=== PATIENT | female | born 1990 | race Caucasian/White ===

== ENCOUNTER 2021-06-04 17:52 | Emergency (ER) | payer BC, MEDICAID, SELFPAY ==
[2021-06-04 17:56] VITALS: BP 149/90; PULSE 104; RESP 24; TEMP 36.6; O2SAT 99; BMI 20.5
--- NOTE | 2021-06-04 18:02 | ECG_ITS ---
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 Measurements Intervals [place] Rate: 92 P: 75 MS: 154 QRS: 54 QRSD: 89 T: 60 QT: 367 QTc: 456 Interpretive Statements SINUS RHYTHM No previous ECG available for comparison Electronically Signed On 06-04-2021 23:58:20 CDT by Magdaleno Dickinson M.D. [id number]
--- NOTE | 2021-06-04 18:02 | XRR_ITS ---
PROCEDURE INFORMATION: Exam: XR Chest Exam date and time: 06/04/2021 6:02 PM Age: 31 years old Clinical indication: Other: PT on heroin/ AMS; Additional info: Eval aspiration TECHNIQUE: Imaging protocol: XR of the chest. Views: 1 view. Total images: 1 COMPARISON: No relevant prior studies available. FINDINGS: Lungs: No visible active interstitial or alveolar airspace disease. Pleural spaces: Unremarkable. No pleural effusion. No pneumothorax. Heart/Mediastinum: Unremarkable. No cardiomegaly. Bones/joints: Mild scoliotic curvature. XR/XR chest 1V portable [id number] IMPRESSION: Nonacute. Radiation Dose CTDIVOL = (mGy): DLP = (mGy-cm)
--- NOTE | 2021-06-04 18:02 | CTR_ITS ---
PROCEDURE INFORMATION: Exam: CT Head Without Contrast Exam date and time: 06/04/2021 6:02 PM Age: 31 years old Clinical indication: Altered mental status/memory loss; Patient HX: Possible fall. PT injected heroin 2 hrs prior; Additional info: Rule out brain bleed TECHNIQUE: Imaging protocol: Computed tomography of the head without contrast. Total images: 192 Radiation optimization: All CT scans at this facility use at least one of these dose optimization techniques: automated exposure control; mA and/or kV adjustment per patient size (includes targeted exams where dose is matched to clinical indication); or iterative reconstruction. COMPARISON: No relevant prior studies available. RADIATION DOSE METRICS: Total DLP (mGy-cm): 993.84 FINDINGS: Brain: No evidence of active or acute intracranial pathologic process, hemorrhage, or trauma. No visible evidence of diffuse cerebral edema or generalized demyelination. No mass effect. No midline shift. Cerebral ventricles: No ventriculomegaly. Paranasal sinuses: Visualized sinuses are unremarkable. No fluid levels. Mastoid air cells: Visualized mastoid air cells are well aerated. Bones/joints: Unremarkable. No acute fracture. Soft tissues: Unremarkable. CT/CT head wo con* [id number] IMPRESSION: No evidence of active or acute intracranial pathologic process, hemorrhage, or trauma. Radiation Dose CTDIVOL = (mGy): DLP = 993.84 (mGy-cm)
[2021-06-04] MEDS: diphenhydrAMINE 50 mg/mL SDV 1mL IVP (19:05)
[2021-06-04] MEDS: sodium chloride 0.9% 1,000 ML 999 ML IV (19:05)
[2021-06-04] MEDS: cloNIDine 0.1 mg Tablet PO (19:05)
[2021-06-04] MEDS: ondansetron 2 mg/ML SDV 2 mL 4 MG IVP (19:05)
[2021-06-04 19:06] LABS: Basophils % 0.4 %; Eosinophils # 0.2 10^3/uL (0.0-0.8); Eosinophils % 1.7 %; Hematocrit 38.9 % (37.0-47.0); Hemoglobin 12.7 g/dL (11.5-15.3); Lymphocytes # 1.3 10^3/uL (0.8-4.8); Lymphocytes % 13.3 %; Mean Corpuscular HGB Conc 32.6 g/dL (30.0-36.0); Mean Corpuscular Volume 79.6 fl (81-99); Mean Platelet Volume 10.7 fL (7.4-10.4); Monocytes # 0.4 10^3/uL (0.2-0.9); Monocytes % 4.3 %; Neutrophils # 7.74 10^3/uL (1.8-7.7); Neutrophils % 79.9 %; Nucleated Red Blood Cells % 0 %; Platelet Count 248 10^3/cmm (130-400); Red Blood Count 4.89 10^6/uL (4.1-5.3); Red Cell Distribution Width 14.5 % (12.1-15.1); White Blood Count 9.7 10^3/uL (4.0-10.0)
--- NOTE | 2021-06-04 19:29 | ED_ITS ---
HPI - General Adult General: Chief complaint: Overdose Stated complaint: SEIZURE LIKE ACTIVITY Time Seen by Provider: 06/04/21 17:55 History of Present Illness: HPI narrative: CC: AMS HPI: [31]yo patient w/ hx of drug use BIBA for altered mental status. He was found down outside by bystanders with upper extremity shaking movement in the LUE. On arrival, patient reports that she injected heroin about 3 hours ago. She does not member how and where she obtained the heroin from. Rest of history limited given altered mental status. Onset: Unknown Duration: ongoing, unclear duration Location: streets Severity: severe Review of Systems Narrative: REVIEW OF SYSTEMS unable to obtain due to current cognitive status Physical Exam Narrative: EXAM NARRATIVE: Head: Atraumatic Eyes: PERRL, conjunctiva without injection, pupil midsized ENT: Mucous membrane moist NECK: Supple without lymphadenopathy LUNGS: LCTAB CV: RRR ABDOMEN: Soft, nontender EXTREMITY: Normal ROM, no clonu or rigidity SKIN: No rash or erythema, no signs of track whelan, no visible patches, no noticeable cellulitis NEURO: Somnolent but intermittently agitated, moving all extremities, GCS of 13 PSYCH: agitated Course Vital Signs: Vital signs: Vital Signs Temperature 97.8 F 06/04/21 17:56 Pulse Rate 82 06/04/21 22:38 Respiratory Rate 15 06/04/21 22:38 Blood Pressure 132/82 06/04/21 22:38 Pulse Oximetry 100 06/04/21 22:38 MDM - General Adult MDM Narrative: Medical decision making narrative: [31]yo patient w/ hx of drug use BIBA for AMS, unclear last seen normal. Obtunded with +Slurred, sluggish behavior. Questionable EtOH intoxication. Airway maintained. No signs of trauma including bruises, hematoma, lacerations, or basilar skull fracture. NO increased work of breathing or tachypnea on presentation, no suspicion for toxic alcohol vs ASA overdose vs DKA. DDx broad including intracranial injuries, metabolic phenomenon, substance intoxication/withdrawal, and sepsis. Toxidrome Findings: Negative. No rigidity or clonus of LE ankle/knee reflexes, no diaphoresis, pupils mid-ranged equal and reactive to light, no signs of track whelan/body patches, normal bowel sounds, and bladder non-palpable/ non- distended. EKG: EKG: Normal Sinus Rhythm. No overt ischemic findings and no prolongation of QTc or QRS intervals. No signs of hyperkalemia (peaked T waves, QRS widening, and CO prolongation) Workup: CBC, CMP, acetaminophen level, salicylate level, CK, UA, ECG, UA/UDS, CT brain, XR Chest Intervention: IVF, PO challenge, observation Lab Findings: UA positive for trich, urine/hcg preg positive Imaging studies: negative for any acute findings. [7:39] On reassessment, patient is now hemodynamically stable, AOx3 GCS 15. Urine drug screen only showed opiates and amphetamine. Patient does not remember using phentermine earlier today. Work-up today including CT brain x- ray chest and lab work-up were negative at this time. Patient denies using any drugs earlier today. Patient tolerated p.o. and is able to ambulate without any difficulty. Neuro intact at this time. Beta hCG of 07/11/2028, urine positive. Patient is noted to have Trichomonas on urine study. I have discussed these findings with patient and instructed close follow-up with a primary care provider for further evaluation of her . Patient is given strict return precaution for any signs of seizure, vaginal discharge, vaginal bleeding, abdominal pain, or any other focal complaints. Patient is given seizure precautions today and discharge instructions. Rx metronidazole 500mg BID for treatment trichmonias Disposition: Discharge. Patient counseled regarding diagnostic impression, treatment plan. Patient given ED strict return precautions to return for continuation, worsening, or development of new symptoms. Instructed to f/u w/ PCP regarding symptoms today. Patient verbalized understanding. Lab Data: Labs: Lab Results 06/04/21 06/04/21 06/04/21 18:57 18:57 18:57 WBC 9.7 10^3/uL 10^3/ uL (4.0-10.0) RBC 4.89 10^6/uL 10^6 /uL (4.1-5.3) Hgb 12.7 g/dL g/dL (11.5-15.3) Hct 38.9 % % (37.0-47.0) MCV 79.6 fl L fl (81-99) MCH 26.0 pg L pg (28.0-34.0) MCHC 32.6 g/dL g/dL (30.0-36.0) RDW 14.5 % % (12.1-15.1) Plt Count 248 10^3/cmm 10^3 /cmm (130-400) MPV 10.7 fL H fL (7.4-10.4) Neut % (Auto) 79.9 % % Lymph % (Auto) 13.3 % % Brooks % (Auto) 4.3 % % Eos % (Auto) 1.7 % % Baso % (Auto) 0.4 % % Neut # (Auto) 7.74 10^3/uL H 10 ^3/uL (1.8-7.7) Lymph # (Auto) 1.3 10^3/uL 10^3/ uL (0.8-4.8) Brooks # (Auto) 0.4 10^3/uL 10^3/ uL (0.2-0.9) Eos # (Auto) 0.2 10^3/uL 10^3/ uL (0.0-0.8) Baso # (Auto) 0.0 10^3/uL 10^3/ uL (0.0-0.1) Nucleated RBC % (a uto) 0 % % Nucleated RBCs # 0.0 /100WBC /100W BC Sodium 139 mmol/L mmol/L (136-145) Potassium 3.4 mmol/L L mmol /L (3.5-5.1) Chloride 102 mmol/L mmol/L (98-107) Carbon Dioxide 21 mmol/L L mmol/ L (22-29) Anion Gap 19.4 H (5-19) BUN 13 mg/dL mg/dL (6-20) Creatinine 0.7 mg/dL mg/dL (0.5-0.9) GFR Calculation 98.3 mL/min mL/mi n (90-130) Glucose 93 mg/dL mg/dL (65-115) Calculated Osmolal ity 288 mOsm/kg mOsm/ kg (285-295) Calcium 9.0 mg/dL mg/dL (8.5-10.5) Total Bilirubin 0.3 mg/dL mg/dL (0.15-1.2) AST 96 U/L H U/L (0-32) ALT 200 U/L H U/L (0-33) Alkaline Phosphata se 65 IU/L IU/L (35-105) Creatine Kinase 180 U/L U/L (26-192) Troponin T Gen 5 n g/L 6 ng/L ng/L (0-10) Total Protein 7.7 g/dL g/dL (6.6-8.7) Albumin 4.6 g/dL g/dL (3.5-5.2) Globulin 3.1 g/dL g/dL (1.3-4.6) Lipase 26 U/L U/L (13-60) Ser , Juanita i-Qnt 128.00 mIU/mL mIU /mL Urine Color Urine Appearance Urine pH Ur Specific Gravit y Urine Protein Urine Glucose (UA) Urine Ketones Urine Blood Urine Nitrate Urine Bilirubin Urine Urobilinogen Ur Leukocyte Sandee ase Urine RBC Urine WBC Ur Squamous Epith Cells Amorphous Sediment Urine Bacteria Urine Trichomonas Urine HCG, Qual Salicylates < 0.3 mg/dL L mg/ dL (3-10) Urine Opiates Scre en Acetaminophen < 5.0 ug/mL L ug/ mL (10-30) Ur Barbiturates Sc reen Ur Phencyclidine S crn Ur Amphetamines Sc reen U Benzodiazepines Scrn Urine Cocaine Scre en U Marijuana (THC) Screen Ethyl Alcohol < 10 mg/dL mg/dL (0-10) 06/04/21 06/04/21 06/04/21 20:10 20:10 20:10 WBC RBC Hgb Hct MCV MCH MCHC RDW Plt Count MPV Neut % (Auto) Lymph % (Auto) Brooks % (Auto) Eos % (Auto) Baso % (Auto) Neut # (Auto) Lymph # (Auto) Brooks # (Auto) Eos # (Auto) Baso # (Auto) Nucleated RBC % (a uto) Nucleated RBCs # Sodium Potassium Chloride Carbon Dioxide Anion Gap BUN Creatinine GFR Calculation Glucose Calculated Osmolal ity Calcium Total Bilirubin AST ALT Alkaline Phosphata se Creatine Kinase Troponin T Gen 5 n g/L Total Protein Albumin Globulin Lipase Ser , Juanita i-Qnt Urine Color Yellow (Yellow) Urine Appearance Clear (CLEAR) Urine pH 5 (5-7) Ur Specific Gravit y 1.020 (1.005-1.030) Urine Protein 1+ H (Negative) Urine Glucose (UA) Norm (Normal) Urine Ketones Negative (Negative) Urine Blood Neg (Negative) Urine Nitrate Negative (Negative) Urine Bilirubin Neg (Negative) Urine Urobilinogen Norm mg/dL mg/dL (Negative) Ur Leukocyte Sandee ase Negative (Negative) Urine RBC None /hpf /hpf (0-2) Urine WBC 0-4 /hpf H /hpf (0-5) Ur Squamous Epith Cells 0-4 /hpf H /hpf (0-5) Amorphous Sediment Not Reportable Urine Bacteria 1+ /hpf H /hpf (NONE) Urine Trichomonas 1+ /hpf H /hpf Urine HCG, Qual Positive H (Negative) Salicylates Urine Opiates Scre en Negative ng/mL ng /mL (Negative) Acetaminophen Ur Barbiturates Sc reen Negative ng/mL ng /mL (Negative) Ur Phencyclidine S crn Negative ng/mL ng /mL (Negative) Ur Amphetamines Sc reen Positive ng/mL H ng/mL (Negative) U Benzodiazepines Scrn Negative ng/mL ng /mL (Negative) Urine Cocaine Scre en Negative ng/mL ng /mL (Negative) U Marijuana (THC) Screen Positive ng/mL H ng/mL (Negative) Ethyl Alcohol Imaging Data^: Other Imaging: Radiologist's impression: [employer] [id number] Scan ReportSigned Patient: Kathy Retana #: [id number]: 1990Acct#:[id number]/Sex: 31 / FADM Date: 06/04/21Loc: ERRoom/Bed:Attending Dr: Ordering Provider/Ordering MD: Lucas Spaulding MD Date of Service: 06/04/21 Procedure(s): CT head wo con* [id number] Accession Number(s): [id number] Report Number: [id number] PROCEDURE INFORMATION: Exam: CT Head Without Contrast Exam date and time: 06/04/2021 6:02 PM Age: 31 years old Clinical indication: Altered mental status/memory loss; Patient HX: Possible fall. PT injected heroin 2 hrs prior; Additional info: Rule out brain bleed TECHNIQUE: Imaging protocol: Computed tomography of the head without contrast. Total images: 192 Radiation optimization: All CT scans at this facility use at least one of these dose optimization techniques: automated exposure control; mA and/or kV adjustment per patient size (includes targeted exams where dose is matched to clinical indication); or iterative reconstruction. COMPARISON: No relevant prior studies available. RADIATION DOSE METRICS: Total DLP (mGy-cm): 993.84 FINDINGS: Brain: No evidence of active or acute intracranial pathologic process, hemorrhage, or trauma. No visible evidence of diffuse cerebral edema or generalized demyelination. No mass effect. No midline shift. Cerebral ventricles: No ventriculomegaly. Paranasal sinuses: Visualized sinuses are unremarkable. No fluid levels. Mastoid air cells: Visualized mastoid air cells are well aerated. Bones/joints: Unremarkable. No acute fracture. Soft tissues: Unremarkable. CT/CT head wo con* [id number] IMPRESSION: No evidence of active or acute intracranial pathologic process, hemorrhage, or trauma. Radiation Dose CTDIVOL = (mGy): DLP = 993.84 (mGy-cm) Dictated By:Eyal Collins By:Eyal Collins Date/Time:06/04/21 1914DD/ [address] [id number] ReportSigned Patient: Kathy Schilling #: [id number]: 1990Acct#:[id number]/Sex: 31 / FADM Date: 06/04/21Loc: ERRoom/Bed:Attending Dr: Ordering Provider/Ordering MD: Lucas Spaulding MD Date of Service: 06/04/21 Procedure(s): XR chest 1V portable [id number] Accession Number(s): [id number] Report Number: [id number] PROCEDURE INFORMATION: Exam: XR Chest Exam date and time: 06/04/2021 6:02 PM Age: 31 years old Clinical indication: Other: PT on heroin/ AMS; Additional info: Eval aspiration TECHNIQUE: Imaging protocol: XR of the chest. Views: 1 view. Total images: 1 COMPARISON: No relevant prior studies available. FINDINGS: Lungs: No visible active interstitial or alveolar airspace disease. Pleural spaces: Unremarkable. No pleural effusion. No pneumothorax. Heart/Mediastinum: Unremarkable. No cardiomegaly. Bones/joints: Mild scoliotic curvature. XR/XR chest 1V portable [id number] IMPRESSION: Nonacute. Radiation Dose CTDIVOL = (mGy): DLP = (mGy-cm) Dictated By:Eyal Collins By:Eyal Collins Date/Time:06/04/211857DD/ 01 Discharge Plan Discharge Patient Disposition: Home Clinical Impression: Overdose, , Seizure, Trichomoniasis Condition: Stable Prescriptions: New metronidazole 500 mg tablet 500 mg PO BID 14 Days Qty: 28 RF: 0 Discharge Orders: Discharge ED (Routine); Ordered 06/04/21 Ordered By: Lucas Spaulding Discharge Diet: Advance as tolerated Discharge Activity: Resume usual activity Patient Instructions: Metronidazole (By mouth), (ED), Seizures Activity Restrictions/Additional Instructions: Please follow-up with your primary care provider for further evaluation of your symptoms. Please do not take shower, swim, bathe, or drive under the influence of drugs and given concerns of your seizure risk. Please follow-up with your primary care provider for evaluation of . Because you have trichmonias infection, please take the antibiotics as instructed. Please do not drink alcohol when you are taking this antibiotics as you can get violently sick. Come back to the emergency room you have any new or concerning complaints. Coding Level of Care Code ED Religion Department Chair for Weston Sevilla
[2021-06-04 19:30] LABS: Troponin T (5th) Once 6 ng/L (0-10)
[2021-06-04 19:42] LABS: Alanine Aminotransferase 200 U/L (0-33); Albumin Level 4.6 g/dL (3.5-5.2); Alkaline Phosphatase 65 IU/L (35-105); Anion Gap 19.4 (5-19); Aspartate Amino Transferase 96 U/L (0-32); Blood Urea Nitrogen 13 mg/dL (6-20); Carbon Dioxide 21 mmol/L (22-29); Chloride 102 mmol/L (98-107); Creatine Phosphokinase 180 U/L (26-192); Globulin 3.1 g/dL (1.3-4.6); Glomerular Filtration Rate 98.3 mL/min (90-130); Glucose 93 mg/dL (65-115); Lipase 26 U/L (13-60); Osmolality Calculated 288 mOsm/kg (285-295); Potassium 3.4 mmol/L (3.5-5.1); Sodium 139 mmol/L (136-145); Total Bilirubin 0.3 mg/dL (0.15-1.2); Total Protein 7.7 g/dL (6.6-8.7)
[2021-06-04 19:46] LABS: Salicylate < 0.3 mg/dL (3-10)
[2021-06-04 19:47] VITALS: BP 131/73; PULSE 81; RESP 15; O2SAT 100
[2021-06-04 19:47] LABS: Acetaminophen < 5.0 ug/mL (10-30); Alcohol Level < 10 mg/dL (0-10)
[2021-06-04 20:16] VITALS: BP 129/80; PULSE 81; RESP 16; O2SAT 99
[2021-06-04 20:39] LABS: Protein Urine 1+ (Negative); Urine Appearance Clear (CLEAR); Urine Color Yellow (Yellow); pH Urine 5 (5-7)
[2021-06-04 20:40] LABS: Add Urine Microscopic? YES; Bilirubin Urine Neg (Negative); Blood Urine Neg (Negative); Glucose Urine UA Norm (Normal); Ketones Urine Negative (Negative); Leukocyte Esterase Urine Negative (Negative); Nitrate Urine Negative (Negative); Urobilinogen Urine Norm (Negative)
[2021-06-04 20:42] LABS: Amphetamines Screen Urine Positive (Negative); Bacteria Urine 1+ /hpf; Barbiturates Screen Urine Negative (Negative); Benzodiazepines Screen Urine Negative (Negative); Cocaine Screen Urine Negative (Negative); Opiate Screen Urine Negative (Negative); PCP Screen Urine Negative (Negative); Squamous Epithelial Cell Urine 0-4 /hpf (0-5); THC Screen Urine Positive (Negative); Trichomonas Urine 1+ /hpf; WBC Urine 0-4 /hpf (0-5)
[2021-06-04 20:43] LABS: Add Urine Culture? No
[2021-06-04 20:58] VITALS: BP 148/87; PULSE 74; RESP 16; O2SAT 100
[2021-06-04 22:38] VITALS: BP 132/82; PULSE 82; RESP 15; O2SAT 100
--- NOTE | 2021-06-06 14:56 | DCPLANNER ---
donor services manager had message to speak with patient about getting established with a primary care physician. A message was left for patient to return trimming caser phone call.
== END 2021-06-04 22:31 | disposition home or self-care (01) ==
PROVIDERS: Emergency Provider Emergency Medicine
DX: O9A.219 Injury, poisoning and certain other consequences of external causes complicating pregnancy, unspecified trimester (principal); T43.621A Poisoning by amphetamines, accidental (unintentional), initial encounter; Z3A.00 Weeks of gestation of pregnancy not specified; O98.919 Unspecified maternal infectious and parasitic disease complicating pregnancy, unspecified trimester; A59.9 Trichomoniasis, unspecified
CPT/HCPCS: 51701; 70450; 71045; 80053; 80306; 80307; 81001; 81025; 82550; 83690; 84484; 84702; 85025; 93005; 96361; 96374; 96375; 99284; J1200; J2405; J7030

== ENCOUNTER 2022-01-29 01:22 | Inpatient (IN) | payer BC, MEDICAID, SELFPAY ==
[2022-01-29] VITALS (62 sets, daily range): BP systolic 107–187; BP diastolic 56–95; PULSE 51–114; RESP 18; TEMP 36.9; O2SAT 90–100; BMI 30.7
[2022-01-29] MEDS: lactated ringers 1,000 ML 999 ML IV (01:35)
[2022-01-29 02:03] LABS: Basophils % 0.3 %; Eosinophils # 0.1 10^3/uL (0.0-0.8); Eosinophils % 1.4 %; Hemoglobin 10.2 g/dL (11.5-15.3); Lymphocytes # 1.6 10^3/uL (0.8-4.8); Lymphocytes % 21.5 %; Mean Corpuscular Hemoglobin 25.8 pg (28.0-34.0); Mean Corpuscular Volume 75.9 fl (81-99); Mean Platelet Volume 11.5 fL (7.4-10.4); Monocytes # 0.4 10^3/uL (0.2-0.9); Monocytes % 4.9 %; Neutrophils # 5.23 10^3/uL (1.8-7.7); Neutrophils % 71.2 %; Nucleated Red Blood Cells % 0 %; Platelet Count 161 10^3/cmm (130-400); Red Blood Count 3.95 10^6/uL (4.1-5.3); Red Cell Distribution Width 13.7 % (12.1-15.1); White Blood Count 7.3 10^3/uL (4.0-10.0)
--- NOTE | 2022-01-29 02:30 | ANES.PREANE2 ---
Documented by User: Pascale RadfordBRIDGETTE 01/29/22 02:51 Pre-Anesthetic Assessment Height/Weight: Height 1.63 m Pulse BP Pulse Ox 75 142/84 100 01/29/22 02:46 01/29/22 02:46 01/29/22 02:42 Preop Diagnosis: IUP epidural Familial anesthetic complications: none Was Beta Jesu taken within 24 hours: N/A Was Clonidine taken within 24 hours: N/A Last Intake: 22:00 Social No alcohol vapes pack(s) per day previous heroin abuse- currently on methadone Exam alert and oriented x 3 Airway Submandibular: within normal limits Cervical ROM: within normal limits Mallampati: Class II Dentition: full History/ROS No significant history except as noted Anesthetic Plan ASA status: 3 Anesthesia: Anesthesia Evaluation and Regional (specify below) (epidural) Medications/Allergies Home Medications Medication Instructions Recorded Confirmed Last Taken Type methadone 10 mg tablet 90 mg PO DAILY 01/29/22 01/29/22 01/28/22 05:00 History Allergies Allergy/AdvReac Type Severity Reaction Status Date / Time cefaclor [From Ceclor] Allergy Unknown Verified 01/29/22 05:49 erythromycin base Allergy Unknown Verified 01/29/22 01:28 Penicillins Allergy Unknown Verified 01/29/22 01:28 Data Anesthesia : 01/29/22 01:49 Short CBC 01/29/22 Range/Units 01:49 WBC 7.3 (4.0-10.0) 10^3/uL Hgb 10.2 L (11.5-15.3) g/dL Hct 30.0 L (37.0-47.0) % MCV 75.9 L (81-99) fl Plt Count 161 (130-400) 10^3/cmm Neut % (Auto) 71.2 % Neut # (Auto) 5.23 (1.8-7.7) 10^3/uL Cardiac Studies: No Data to Display
[2022-01-29] MEDS: dextrose 5%-lactated ringers 1,000 ML 125 ML IV (02:35)
--- NOTE | 2022-01-29 02:51 | ANES.PROC ---
Documented by User: Pascale Radford CRNA 01/30/22 08:01 Anesthesia Procedures Procedure/Date: 01/30/22 Epidural: Time Out Performed: Yes Consents Signed: Procedure Consent Consent: from patient, risks and benefits reviewed and patient agrees to proceed Lumbar Level: L3-L4 Epidural position: sitting Epidural procedure: sterile prep of area, 1% lidocaine to numb the area, 18 g needle, negative for paresthesia passed, test dose given, 1.5% xylocaine 1:200k epi, 0.2% Ropivacaine bolus ml, placed PCEA, no systemic response, sterile dressing applied, L.U.D. no apparent complications and 0.2% Ropiavacaine @ mls/hr (13) Additional Comments: SELENE at 5, taped at 12 at skin. neg CSF return, neg blood return Documented by User: Kaylie Figueredo DO 01/30/22 08:46 Anesthesia Procedures Procedure/Date: 01/30/22
[2022-01-29] MEDS: oxytocin 30 UNIT/500 ML BAG 600 UNIT IV (03:52)
--- NOTE | 2022-01-29 04:20 | P.HPUD_ITS ---
Labor & Delivery H&P Update Date of Procedure: January 29, 2022 Date H&P Performed: 01/28/22 Changes to previous documentation: Spontaneous rupture of membranes Admission Diagnosis: 31-year-old 5 para 4-0-0-4 at 37 weeks estimated gestational age presenting with spontaneous rupture membranes Preop diagnosis: IUP Planned procedure: Spontaneous vaginal delivery Other information: The patient is a 37-week female who presented to the hospital after having leakage of fluid shortly before coming to the hospital. She did not have easy access to a ride, and took an ambulance to the hospital. Upon arrival at the hospital she was found to be nitrazine positive with a moist vaginal vault. Her was remarkable for being hep C positive. She is also noted to have trichomonas which was treated. Her drug screen was notable for opiates and marijuana. She is currently on methadone 90 mg daily and has a marijuana card currently. Her blood type is B-. She is antibody negative. She was GBS negative. Her glucose screen was negative. She is rubella immune. She was negative for HIV, syphilis, and hepatitis B. Related Problem List Diagnoses (1) 37 weeks gestation of : (2) Spontaneous rupture of membranes: (3) Hepatitis C: (4) History of trichomonal vaginitis: (5) Methadone use: (6) Marijuana use: A&P Assessment & Plan (1) 37 weeks gestation of : Assessment & Plan: The patient is an active labor and making cervical change. She can have an epidural if desired. Status: Acute Code(s): Z3A.37 - 37 weeks gestation of (2) Spontaneous rupture of membranes: Status: Acute (3) Hepatitis C: Status: Acute Code(s): B19.20 - Unspecified viral hepatitis C without hepatic coma (4) History of trichomonal vaginitis: Assessment & Plan: Partner and patient adequately treated. No further symptoms. Status: Acute Code(s): Z86.19 - Personal history of other infectious and parasitic diseases (5) Methadone use: Assessment & Plan: Currently receiving to methadone clinic. Status: Acute Code(s): F11.90 - Opioid use, unspecified, uncomplicated (6) Marijuana use: Status: Acute Code(s): F12.90 - Cannabis use, unspecified, uncomplicated Assessment & Plan: * All medications have been reviewed for disease state management, side effects, interactions, or complications. * Patient medication history and treatment plan has been reviewed. Based on recommendation from [] and my own review, I am prescribing [] for patient. * Prescription e-prescribed to []
--- NOTE | 2022-01-29 04:30 | P.PCNOB_ITS ---
Delivery Note: Date of delivery: January 29, 2022 Pre-delivery diagnoses: 31-year-old 5 para 4 at 37 weeks estimated gestational age presenting with spontaneous rupture of membranes and active labor. Post-delivery diagnoses: Same Procedure: Spontaneous vaginal delivery Delivering Physician: Johnson Gusman Estimated blood loss (mL): 200 Pre-Delivery Course: The patient presented to the hospital with spontaneous rupture membranes and active labor. An epidural was placed. She progressed to complete without difficulty. Delivery: DELIVERY: The patient progressed to complete without difficulty. She delivered a female with a weight of 6 pounds 6 ounces with Apgars of 9, 9. The baby was delivered from the MARYANN position and placed on the mother's abdomen. The cord was then clamped and cut. There was no nuchal cord. There was no meconium. The placenta and 3 vessel cord were delivered intact shortly thereafter. The perineum and vaginal vault were carefully examined. No lacerations were noted. Both the mother and the baby were in stable condition. Post-Delivery Status: Good A&P Assessment and plan (1) Spontaneous vaginal delivery: I anticipate routine care. She has been prescribed methadone. Status: Acute Coding Level of Care Code Acute Professional Soccer Player for Chg Fwd Diagnoses Spontaneous vaginal delivery O80
[2022-01-29 05:06] LABS: Amphetamines Screen Urine Negative (Negative); Barbiturates Screen Urine Negative (Negative); Benzodiazepines Screen Urine Negative (Negative); Cocaine Screen Urine Negative (Negative); Opiate Screen Urine Negative (Negative); PCP Screen Urine Negative (Negative); THC Screen Urine Positive (Negative)
--- NOTE | 2022-01-29 06:00 | PC.NURSE ---
Patient asleep in bed with baby. Moved baby to open crib, woke patient and reeducated on safe sleep practices.
[2022-01-29] MEDS: docusate sodium 100 mg Capsule PO ×2 (08:19→18:09)
[2022-01-29] MEDS: prenatal vitamin Capsule 1 CAP PO (08:19)
[2022-01-29] MEDS: methadone 10 mg Tablet 90 MG PO (08:20)
[2022-01-29] MEDS: ibuprofen 800 mg tablet PO ×2 (08:20→21:08)
--- NOTE | 2022-01-29 08:33 | ANE.PACU2 ---
Inpatient post-anesthesia follow up: Airway intact: Yes Vital signs: Temperature Pulse Rate 53 Respiratory Rate Blood Pressure 131/72 Pulse Oximetry 100 Oxygen Delivery Me thod Room Air Oxygen Flow Rate Fraction of Inspir ed Oxygen Hydration adequate: Yes Nausea and vomiting: No Pain level: 2 Mental status: Baseline
[2022-01-29 17:05] LABS: Hemoglobin 9.9 g/dL (11.5-15.3); Mean Corpuscular Hemoglobin 25.7 pg (28.0-34.0); Mean Corpuscular Volume 77.9 fl (81-99); Mean Platelet Volume 11.4 fL (7.4-10.4); Platelet Count 163 10^3/cmm (130-400); Red Blood Count 3.85 10^6/uL (4.1-5.3); White Blood Count 8.3 10^3/uL (4.0-10.0)
--- NOTE | 2022-01-30 02:11 | PC.NURSE ---
This nurse went to obtain vitals on the pt and perform CINDY scoring on the and the pt was agitated at this time. She expressed concern that baby was withdrawing and would only get worse. Pt was concerned about not expressing enough breastmilk and this nurse educated about pumping at this time. pt was visibly upsetting and stating i'm getting really pissed off. Stated this RN could not perform CINDY scoring at this time and could come back later. Security was contacted as well as packing house laborer.
[2022-01-30 04:28] VITALS: BP 157/73; PULSE 65
[2022-01-30] MEDS: methadone 10 mg Tablet 90 MG PO (06:50)
--- NOTE | 2022-01-30 06:56 | P.DS_ITS ---
Discharge Providers SENIOR ENVIRONMENTAL CONSULTANT Date of Admission: 01/29/22 01:22 Date of Discharge: 01/30/22 Attending Provider at Admission: Johnson Gusman MD Attending Provider at Discharge: Johnson Gusman MD Diagnoses at Discharge Discharge Diagnosis (1) Spontaneous vaginal delivery: Status: Acute Reason for Visit Reason for Visit: Possible ROM, here by EMS Hospital Course Hospital Course The patient presented to the hospital with spontaneous rupture of membranes. An epidural was placed. She then progressed to complete and had an unremarkable delivery of a healthy-appearing female . Her bleeding was within normal limits. Her course was also unremarkable. There were no complications. Information Peripartum Data: Delivery Method: Vaginal Physical Exam Narrative: The patient is alert. She appears comfortable. Her heart has a regular rate and rhythm with no murmurs appreciated. Lungs are clear to auscultation bilaterally. Her fundus is firm and below the umbilicus. Urinary Catheter Management: Carcamo Latex: Cath Placed During This Visit: yes Urinary Catheter Date of Insertion: 01/29/22 Urinary Catheter Time of Insertion: 02:50 Discharge Data Studies Completed and Pending Laboratory Results WBC 8.3 10^3/uL (4.0-10.0) 01/29/22 16:25 RBC 3.85 10^6/uL (4.1-5.3) L 01/29/22 16:25 Hgb 9.9 g/dL (11.5-15.3) L 01/29/22 16:25 Hct 30.0 % (37.0-47.0) L 01/29/22 16:25 MCV 77.9 fl (81-99) L 01/29/22 16:25 MCH 25.7 pg (28.0-34.0) L 01/29/22 16:25 MCHC 33.0 g/dL (30.0-36.0) 01/29/22 16:25 RDW 14.0 % (12.1-15.1) 01/29/22 16:25 Plt Count 163 10^3/cmm (130-400) 01/29/22 16:25 MPV 11.4 fL (7.4-10.4) H 01/29/22 16:25 Neut % (Auto) 71.2 % 01/29/22 01:49 Lymph % (Auto) 21.5 % 01/29/22 01:49 [place] % (Auto) 4.9 % 01/29/22 01:49 Eos % (Auto) 1.4 % 01/29/22 01:49 Baso % (Auto) 0.3 % 01/29/22 01:49 Neut # (Auto) 5.23 10^3/uL (1.8-7.7) 01/29/22 01:49 Lymph # (Auto) 1.6 10^3/uL (0.8-4.8) 01/29/22 01:49 [place] # (Auto) 0.4 10^3/uL (0.2-0.9) 01/29/22 01:49 Eos # (Auto) 0.1 10^3/uL (0.0-0.8) 01/29/22 01:49 Baso # (Auto) 0.0 10^3/uL (0.0-0.1) 01/29/22 01:49 Nucleated RBC % (auto) 0 % 01/29/22 01:49 Nucleated RBCs # 0.0 /100WBC 01/29/22 01:49 Urine Opiates Screen Negative ng/mL (Negative) 01/29/22 02:00 Ur Barbiturates Screen Negative ng/mL (Negative) 01/29/22 02:00 Ur Phencyclidine Scrn Negative ng/mL (Negative) 01/29/22 02:00 Ur Amphetamines Screen Negative ng/mL (Negative) 01/29/22 02:00 U Benzodiazepines Scrn Negative ng/mL (Negative) 01/29/22 02:00 Urine Cocaine Screen Negative ng/mL (Negative) 01/29/22 02:00 U Marijuana (THC) Screen Positive ng/mL (Negative) H 01/29/22 02:00 Vitals Last Vital Signs Temp 98.4 F 01/29/22 21:13 Pulse 65 01/30/22 04:28 Resp 18 01/29/22 09:57 BP 157/73 01/30/22 04:28 Pulse Ox 100 01/29/22 02:42 Discharge Plan Discharge Patient Disposition: Home Condition: Stable Prescriptions: New ibuprofen 800 mg Tablet 800 mg PO TID Qty: 45 0RF -U 106.5-1 mg Capsule 1 cap PO DAILY Qty: 100 0RF Continued methadone 10 mg Tablet 90 mg PO DAILY 0RF Discharge Orders: Discharge Order (Routine); Ordered 01/30/22 Ordered By: Johnson Gusman Referrals: Johnson Gusman MD [Physician] - 6 Weeks Discharge Diet: Usual diet Discharge Activity: Limit activity as instructed Patient Instructions: Opioid Safety Discharge Attestations SENIOR ENVIRONMENTAL CONSULTANT Time Spent in Discharge Care*: less than 30 min Coding Level of Care Code Acute Supervisor Graphite for Chg Fwd Diagnoses Spontaneous vaginal delivery O80
[2022-01-30] MEDS: prenatal vitamin Capsule 1 CAP PO (08:42)
[2022-01-30] MEDS: ibuprofen 800 mg tablet PO (08:42)
[2022-01-30] MEDS: docusate sodium 100 mg Capsule PO (08:42)
[2022-01-30 08:44] VITALS: BP 165/86; PULSE 60
[2022-01-30 08:46] VITALS: BP 158/85; PULSE 53
[2022-01-30 11:00] VITALS: BP 158/85; PULSE 53; RESP 16; TEMP 36.9
--- NOTE | 2022-01-30 11:10 | PC.NURSE ---
Mother rooming with
== END 2022-01-30 11:10 | disposition home or self-care (01) | DRG 806 ==
LOC: OPOB 04:09 → OBGYN 04:09
PROVIDERS: Admitting Provider Family Medicine; Visit Provider Family Medicine
DX: O98.42 Viral hepatitis complicating childbirth (principal); O99.324 Drug use complicating childbirth; Z37.0 Single live birth; B19.20 Unspecified viral hepatitis C without hepatic coma; F12.90 Cannabis use, unspecified, uncomplicated; Z3A.37 37 weeks gestation of pregnancy
CPT/HCPCS: 12345; 36415; 51702; 59025; 59409; 80306; 83986; 85025; 85027; 99211; J2795

== ENCOUNTER 2022-11-14 11:40 | Inpatient (IN) | payer BC, SELFPAY ==
[2022-11-14] VITALS (45 sets, daily range): BP systolic 115–131; BP diastolic 69–91; PULSE 62–104; RESP 14–28; TEMP 36.1–36.3; O2SAT 99–100
[2022-11-14] MEDS: vecuronium 10 mg SDV IVP (11:45)
[2022-11-14] MEDS: etomidate 2 mg/mL INJ SDV 10 mL 20 MG IVP (11:45)
--- NOTE | 2022-11-14 11:45 | XR_ITS ---
WS: [id number] XR chest 1V portable [id number] REASON FOR EXAM: dyspnea/cough FINDINGS: Patient intubated with the endotracheal tube tip just above the oumar. The heart and mediastinum are within normal limits. No pneumothorax or pneumomediastinum. Equivocal interstitial reticular lung opacities in the left lower/mid lung field. No other findings i ndicative of acute pulmonary parenchymal or pleural disease. XR/XR chest 1V portable [id number] IMPRESSION: Intubation as above. Equivocal lung opacities on the right which could represent acute or subacute p neumonitis, less likely aspiration.
--- NOTE | 2022-11-14 11:45 | ECG_ITS ---
[facility] Test Date: 2022-11-14 Pat Name: Kathy Retana Department: Room: Gender: Female Fulfillment Specialist: : 1990 Requested By: Saturnino Wilburn Order Number: [id number] Eleonora MD: Fernando Hudson M.D. Measurements Intervals [place] Rate: 120 P: 147 NV: 144 QRS: 111 QRSD: 94 T: 138 QT: 340 QTc: 482 Interpretive Statements SINUS TACHYCARDIA ARM LEADS REVERSED [INVERTED P AND QRS IN I] Compared to ECG 06/04/2021 19:42:05 Sinus rhythm no longer present Electronically Signed On 11-14-2022 16:31:45 CDT by Fernando Hudson M.D. [email or web address]
--- NOTE | 2022-11-14 11:45 | CT_ITS ---
WS: [id number] CT HEAD NONCONTRAST HISTORY: closed head injury TECHNIQUE: Contiguous axial imaging performed through the brain in 2.5 mm imaging. Bone and soft tiss ue windows. Sagittal and coronal reformats reviewed. All CT scans at [facility] use at least one of these dose optimization techniques: automated exposure control; mA and/or kV adjustment per pa tient size (includes targeted exams where dose is matched to clinical indication); or iterative recon struction. DLP: 1387.12 mGy.cm COMPARISON: 06/04/2021 No acute intracranial hemorrhage, midline shift or mass effect. No atrophy or prior infarcts or herniation. Ventricles: Normal size with no hydrocephalus. Paranasal sinuses: As visualized are clear. Mastoid air cells: Well pneumatized. Calvarium and scalp: Skull is intact with no soft tissue edema or swelling. Patient is intubated. CT/CT head wo con* [id number] IMPRESSION: Negative head CT.
--- NOTE | 2022-11-14 11:46 | CT_ITS ---
WS: [id number] CT FACIAL BONES HISTORY: trauma TECHNIQUE: Images obtained from the supraorbital location through the mandible. Soft tissue and bone windows are reviewed. Coronal and sagittal reformats have also been submitted. DLP: 1387.[address] scans at [facility] use at least one of these dose optimization techniques: automated e xposure control; mA and/or kV adjustment per patient size (includes targeted exams where dose is matc hed to clinical indication); or iterative reconstruction. COMPARISON: None available. Intubated and nasogastric tube noted. Nasal bones and zygomatic arches are intact. No air-fluid level s in the maxillary sinuses. No maxillary sinus fracture is identified. Visualized upper cervical spin e is negative. No maxillary fracture. Orbits and globes are normal. CT/CT facial bones wo con* [id number] IMPRESSION: Negative facial bone CT. No fractures.
[2022-11-14] MEDS: propofol 1,000 MG/100 ML INJ 5 MG (11:52)
--- NOTE | 2022-11-14 11:54 | W.ED.SEIZURE ---
HPI - Seizure General: Chief Complaint: Seizure Stated Complaint: unresponsive/seizures Time Seen by Provider: 11/14/22 11:44 Source: EMS Mode of arrival: EMS History of Present Illness: HPI Narrative: 32-year-old female brought in by EMS she is obtunded on arrival and EMS reports having given her 10 mg of IV Versed for a witnessed seizure. She had been walking around in the store and [place] began convulsing after she fell to the ground she did have blood in the naris when she arrived. She is unresponsive with sonorous respirations and nasopharyngeal airway in place she was emergently intubated on arrival. We later found that she is prescribed methadone by a local clinic and was given 1 week supply today. It is uncertain whether or not she overdosed on this she has a boyfriend who is at the hospital but is not inside the emergency room he is waiting in a car outside with the patient's children. complaint: seizure Onset (ago): minute(s) Description of Episode: tonic-clonic movement Witnessed: Yes - by Bystander Trauma: Yes (Hit her face when she fell) Place: Local convenience store Possible Precipitating Event: drug use (Suspected methadone) Treatments prior to arrival: benzodiazepines (Versed 10 mg) Review of Systems General: Reports: ROS unobtainable due to endotracheal tube [facility] ED PFSH: Medical History (Updated 11/15/22 @ 06:31 by Saturnino Sylvester DO) Hepatitis C Methadone use Surgical History (Updated 11/14/22 @ 15:54 by Luis Martinez MD) S/P cholecystectomy Family History (Updated 11/14/22 @ 15:54 by Luis Martinez MD) Other Hypertension Seizure Social History (Updated 11/14/22 @ 15:55 by Luis Martinez MD) Smoking and tobacco status: current every day smoker Alcohol intake: current Alcohol intake frequency: few times a week Substance/Drug Use: current Substance/Drug use type: Amphetamines Caregiver/support person: Yes Lives independently: Yes Household members: family and other Supplemental [facility] Information: due to endotracheal tube Physical Exam Const: GENERAL APPEARANCE: in distress and lethargic ORIENTATION/CONSCIOUSNESS: Yes lethargic HENMT: COMMON NORMALS: normocephalic and hearing grossly normal bilaterally HEAD & SCALP: normocephalic Resp: EFFORT & INSPECTION: Yes respiratory distress and Yes decreased respiratory effort Cardio: COMMON NORMALS: regular rate, regular rhythm and No murmurs present (Cardio) RATE: regular rate RHYTHM: regular rhythm GI: COMMON NORMALS: Soft to palpation and No hepatosplenomegaly present AUSCULTATION: Yes normoactive bowel sounds PALPATION: Yes Soft to palpation, No Tenderness to palpation present (GI), No Guarding due to palpation present (GI) and Yes No hepatosplenomegaly present Extremity: COMMON NORMALS: normal to inspection, capillary refill normal, no clubbing, cyanosis or edema, no calf tenderness and no pedal edema Neuro: SENSORIUM/ORIENTATION: Yes lethargic Skin: COMMON NORMALS: no rashes or lesions noted GENERAL SKIN EXAM: no rashes or lesions noted Procedures Intubation Time out performed: Yes sedative: Etomidate Mg Given: 20 paralytic: Vecuronium Mg Given: 10 Laryngoscope: fiber optic video scope Assist Device Used: fiber optic device ET Tube Size: 8.5 ET Tube Uncuffed: No Tube Secured Depth (cm): 21 Tube Placement Confirmation: visualized tube passing through cords, equal breath sounds bilaterally, no breath sounds over epigastrium and confirmation by capnometry Patient Tolerated Procedure: well Intubation Complications: none Course Vital Signs: Vital signs: Vital Signs Temperature 97.4 F L 11/15/22 04:00 Pulse Rate 93 11/15/22 06:00 Respiratory Rate 16 11/15/22 06:00 Blood Pressure 107/92 11/15/22 06:00 Pulse Oximetry 99 11/15/22 06:00 Oxygen Delivery Co thod 11/15/22 06:00 Fraction of Inspir ed Oxygen 24 11/15/22 04:00 MDM - Seizure MDM Narrative Medical decision making narrative: Labs and imaging reviewed. We will make contact with a boyfriend however he did not come to the emergency room and I did not have the opportunity to talk to him or any family members or bystanders most of her history was from EMS and chart. She was emergently intubated on arrival EMS had given her 10 mg of Versed we did give her etomidate and vecuronium however I was able to intubate her as these medicines are being giving as she had no gag reflex due to the Versed. Initially had severe lactic acidosis and elevated ammonia level. Literature resurgery found that this can be caused transiently by seizures which had been reported by EMS as having happened suddenly. Her ammonia level reverted back to normal her T. bili and albumin are normal as well her transaminases are elevated she has a history of hepatitis C. We did find methamphetamine in her bra and she was positive on testing. There is also the concern that she may have overdosed on methadone but were not able to confirm that with any family members. She was emergently intubated on arrival her pH was significantly acidotic on her first blood gas with a respiratory acidosis this was improving on her second blood gas. Will admit to the ICU she has been given Keppra. Will continue on propofol drip discussed with hospitalist orders written head CT was negative as well as CT of facial bones and CT abdomen and pelvis. Chest x-ray initially there is a concern about possible aspiration clinically based on her presentation I was also concerned about this and she was given clindamycin since she is allergic to penicillin. Additionally patient's troponin is markedly elevated concern for myocardial infarction or PE discussed with hospitalist heparinization started. Medical Records Attestation: I reviewed the patient's medical records. Lab Data Attestation: I reviewed the patient's lab results. 11/15/22 03:22 11/15/22 03:22 Labs: Radiology Impressions Head CT 11/14/22 11:45 IMPRESSION: Negative head CT. Face CT 11/14/22 11:46 IMPRESSION: Negative facial bone CT. No fractures. Chest X-Ray 11/14/22 13:12 IMPRESSION: Properly positioned endotracheal tube and nasogastric tube. Better expansion of the lungs without lung opacities suspected on the exam of earlier today. Abdomen/Pelvis CT 11/14/22 13:25 IMPRESSION: 1. No acute abdominal or pelvic abnormalities are identified. 2. Study is compromised by significant artifact from external wires and catheters. 3. Nasogastric tube in good position with the tip directed towards the stomach antrum. 4. No renal obstruction. 5. No free air or free fluid. Chest/Abdomen/Pelvis CT 11/14/22 14:20 IMPRESSION: 1. No pulmonary embolism. 2. Mild LEFT heart enlargement. 3. No RIGHT heart strain. 4. No pneumothorax or pulmonary contusion. 5. Nasogastric and endotracheal tubes are placed in good position. 6. No GI tract obstruction. There is high density contrast in the stomach that was not present on the prior study. No oral contrast was given by radiology through the nasogastric tube. After speaking to Dr. Sylvester this was due to medication given via the NG tube within the emergency department. Cervical Spine CT 11/14/22 14:59 IMPRESSION: Normal cervical spine. Laboratory Results WBC 13.0 10^3/uL (4.0-10.0) H 11/14/22 11:50 RBC 5.41 10^6/uL (4.1-5.3) H 11/14/22 11:50 Hgb 14.7 g/dL (11.5-15.3) 11/14/22 11:50 Hct 48.1 % (37.0-47.0) H 11/14/22 11:50 MCV 88.9 fl (81-99) 11/14/22 11:50 MCH 27.2 pg (28.0-34.0) L 11/14/22 11:50 MCHC 30.6 g/dL (30.0-36.0) 11/14/22 11:50 RDW 13.3 % (12.1-15.1) 11/14/22 11:50 Plt Count 335 10^3/cmm (130-400) 11/14/22 11:50 MPV 11.1 fL (7.4-10.4) H 11/14/22 11:50 Neut % (Auto) 37.2 % 11/14/22 11:50 Lymph % (Auto) 53.5 % 11/14/22 11:50 [place] % (Auto) 6.0 % 11/14/22 11:50 Eos % (Auto) 2.1 % 11/14/22 11:50 Baso % (Auto) 0.8 % 11/14/22 11:50 Neut # (Auto) 4.84 10^3/uL (1.8-7.7) 11/14/22 11:50 Lymph # (Auto) 7.0 10^3/uL (0.8-4.8) H 11/14/22 11:50 [place] # (Auto) 0.8 10^3/uL (0.2-0.9) 11/14/22 11:50 Eos # (Auto) 0.3 10^3/uL (0.0-0.8) 11/14/22 11:50 Baso # (Auto) 0.1 10^3/uL (0.0-0.1) 11/14/22 11:50 Nucleated RBC % (auto) 0 % 11/14/22 11:50 Nucleated RBCs # 0.0 /100WBC 11/14/22 11:50 PT 16.30 SECONDS (12.1-14.9) H 11/14/22 11:50 INR 1.27 (0.8-1.2) H 11/14/22 11:50 APTT 37.5 SECONDS (23.9-36.7) H 11/14/22 11:50 Specimen Type Arterial 11/14/22 13:21 Sample Site Radial, right 11/14/22 13:21 ABG pH 7.29 (7.35-7.45) L 11/14/22 13:21 ABG pCO2 43.4 mmHg (35-45) 11/14/22 13:21 ABG pO2 202.0 mmHg (80.0-100.0) H 11/14/22 13:21 ABG HCO3 20.7 mmol/L (22-26) L 11/14/22 13:21 ABG O2 Saturation > 100.0 11/14/22 13:21 ABG Base Excess -5.9 mmol/L (-2.0-2.0) L 11/14/22 13:21 Johan Test Pos 11/14/22 13:21 A-a O2 Gradient 3.9 mmHg (5-10) L 11/14/22 13:21 Hematocrit 42.6 % (37-47) 11/14/22 13:21 Hgb O2 Saturation 97.2 % (95-100) 11/14/22 13:21 Carboxyhemoglobin 2.0 %THgb (0.4-20.1) 11/14/22 13:21 Methemoglobin 0.9 % (0.4-1.5) 11/14/22 13:21 Total Hemoglobin 13.9 g/dL (12-16) 11/14/22 13:21 Sodium 139.0 mmol/L (131-143) 11/14/22 13:21 Potassium 3.8 mmol/L (3.5-5.0) 11/14/22 13:21 Glucose 85.0 mg/dL (70-115) 11/14/22 13:21 Ionized Calcium 1.2 mmol/L (1.1-1.4) 11/14/22 13:21 O2 Delivery Device Vent 11/14/22 13:21 FiO2 40.0 % 11/14/22 13:21 Tidal Volume 0.45 11/14/22 13:21 PEEP 5.0 cmH20 11/14/22 13:21 Helix Coil Winder ID Amh 11/14/22 13:21 Sodium 137 mmol/L (136-145) 11/14/22 11:50 Potassium 4.0 mmol/L (3.5-5.1) 11/14/22 11:50 Chloride 95 mmol/L (98-107) L 11/14/22 11:50 Carbon Dioxide 8 mmol/L (22-29) L* 11/14/22 11:50 Anion Gap 38.0 (5-19) H 11/14/22 11:50 BUN 10 mg/dL (6-20) 11/14/22 11:50 Creatinine 0.9 mg/dL (0.5-0.9) 11/14/22 11:50 GFR Calculation 73.0 mL/min (90-130) L 11/14/22 11:50 Glucose 134 mg/dL (65-115) H 11/14/22 11:50 Calculated Osmolality 285 mOsm/kg (285-295) 11/14/22 11:50 Lactic Acid 24.9 mmol/L (0.5-2.2) H* 11/14/22 11:50 Lactic Acid (Sepsis) 1.5 mmol/L (0.5-2.2) 11/14/22 14:14 Calcium 9.6 mg/dL (8.5-10.5) 11/14/22 11:50 Magnesium 2.7 mg/dL (1.7-2.3) H 11/14/22 11:50 Iron 102 ug/dL (37-145) 11/14/22 11:50 TIBC 556 mcg/dl 11/14/22 11:50 % Saturation 18.3 % (20-50) L 11/14/22 11:50 Unsat Iron Binding 454 ug/dL (112-347) H 11/14/22 11:50 Total Bilirubin 0.5 mg/dL (0.15-1.2) 11/14/22 11:50 AST 111 U/L (0-32) H 11/14/22 11:50 ALT 147 U/L (0-33) H 11/14/22 11:50 Alkaline Phosphatase 111 U/L (35-105) H 11/14/22 11:50 Ammonia 48 umol/L (11-51) 11/14/22 13:30 Creatine Kinase 304 U/L (26-192) H 11/14/22 11:50 Troponin T Baseline 6 ng/L (0-10) 11/14/22 11:50 Troponin T 120 Minute 149.6 ng/L (0-10) H 11/14/22 13:30 Delta Troponin T 143.6 ABS# (0-10) H* 11/14/22 13:30 Total Protein 8.6 g/dL (6.6-8.7) 11/14/22 11:50 Albumin 4.7 g/dL (3.5-5.2) 11/14/22 11:50 Globulin 3.9 g/dL (1.3-4.6) 11/14/22 11:50 Lipase 30 U/L (13-60) 11/14/22 11:50 Vitamin B12 726 pg/mL (232-1245) 11/14/22 11:50 Folate 19.5 ng/mL (4.8-37.3) 11/14/22 11:50 Procalcitonin 0.04 ng/mL (0-0.5) 11/14/22 11:50 HCG, Qual Negative (Negative) 11/14/22 11:50 Urine Color Yellow (Yellow) 11/14/22 13:04 Urine Appearance Clear (CLEAR) 11/14/22 13:04 Urine pH 5 (5-7) 11/14/22 13:04 Ur Specific [place] 1.025 (1.005-1.030) 11/14/22 13:04 Urine Protein Trace (Negative) 11/14/22 13:04 Urine Glucose (UA) Norm (Normal) 11/14/22 13:04 Urine Ketones 1+ (Negative) H 11/14/22 13:04 Urine Blood 3+ (Negative) H 11/14/22 13:04 Urine Nitrate Negative (Negative) 11/14/22 13:04 Urine Bilirubin Neg (Negative) 11/14/22 13:04 Urine Urobilinogen Norm mg/dL (Negative) 11/14/22 13:04 Ur Leukocyte Esterase Negative (Negative) 11/14/22 13:04 Urine RBC Rare /hpf (0-2) 11/14/22 13:04 Urine WBC Rare /hpf (0-5) 11/14/22 13:04 Ur Squamous Epith Cells Rare /hpf (0-5) 11/14/22 13:04 Amorphous Sediment Not Reportable 11/14/22 13:04 Urine Bacteria Trace /hpf (NONE) 11/14/22 13:04 Salicylates < 0.3 mg/dL (3-10) L 11/14/22 11:50 Urine Opiates Screen Negative ng/mL (Negative) 11/14/22 13:04 Acetaminophen < 5.0 ug/mL (10-30) L 11/14/22 11:50 Ur Barbiturates Screen Negative ng/mL (Negative) 11/14/22 13:04 Ur Phencyclidine Scrn Negative ng/mL (Negative) 11/14/22 13:04 Ur Amphetamines Screen Positive ng/mL (Negative) H 11/14/22 13:04 U Benzodiazepines Scrn Negative ng/mL (Negative) 11/14/22 13:04 Urine Cocaine Screen Negative ng/mL (Negative) 11/14/22 13:04 U Marijuana (THC) Screen Positive ng/mL (Negative) H 11/14/22 13:04 Ethyl Alcohol < 10 mg/dL (0-10) 11/14/22 11:50 Hepatitis A IgM Ab Non-reactive (Nonreactive) 11/14/22 11:50 Hep Bs Antigen Non-reactive (Nonreactive) 11/14/22 11:50 Hep Bs Antibody 42.5 (11.5-1000) 11/14/22 11:50 Hep B Core Total Ab Non-reactive (Nonreactive) 11/14/22 11:50 Hepatitis C Antibody Reactive (Nonreactive) H 11/14/22 11:50 HIV 1&2 Ab & HIV 1 Ag Non-reactive (Non-Reactiv) 11/14/22 11:50 HIV 1&2 Antibody Non-reactive (Non-Reactiv) 11/14/22 11:50 Critical Care Time Critical Care Time: Critical Care Time: Yes Total Critical Care Time: 45 Attestation: The high probability of a clinically significant, sudden or life threatening deterioration of the patient's respiratory neurologic system(s) required my full and direct attention, intervention and personal management. The critical care time is as shown. This time is in addition to time spent performing any reported procedures but includes the following: [x] Data and vital sign review and interpretation [x] Patient assessment, examination and intervention [x] Documentation [x] Medication orders and management Discharge Plan Discharge Patient Disposition: Admitted As Inpatient Admit Provider: Luis Martinez Clinical Impression: Seizure, Amphetamine abuse, High anion gap metabolic acidosis, Methadone use, Hepatitis C, Respiratory failure, Elevated troponin, Transaminitis, Lactic acidosis Condition: Stable Coding Level of Care Code ED Client Service Consultant for Weston Sevilla
[2022-11-14] MEDS: pantoprazole 40 mg SDV IVP ×2 (12:05→16:36)
[2022-11-14 12:06] LABS: Basophils # 0.1 10^3/uL (0.0-0.1); Basophils % 0.8 %; Eosinophils # 0.3 10^3/uL (0.0-0.8); Eosinophils % 2.1 %; Hematocrit 48.1 % (37.0-47.0); Hemoglobin 14.7 g/dL (11.5-15.3); Lymphocytes % 53.5 %; Mean Corpuscular HGB Conc 30.6 g/dL (30.0-36.0); Mean Corpuscular Hemoglobin 27.2 pg (28.0-34.0); Mean Corpuscular Volume 88.9 fl (81-99); Mean Platelet Volume 11.1 fL (7.4-10.4); Monocytes # 0.8 10^3/uL (0.2-0.9); Neutrophils # 4.84 10^3/uL (1.8-7.7); Neutrophils % 37.2 %; Nucleated Red Blood Cells % 0 %; Platelet Count 335 10^3/cmm (130-400); Red Blood Count 5.41 10^6/uL (4.1-5.3); Red Cell Distribution Width 13.3 % (12.1-15.1)
[2022-11-14 12:20] LABS: ABG PCO2 44.3 mmHg (35-45); Alveolar-Arterial Oxygen Gradi 4.9 mmHg (5-10); Arterial Blood Gas Hematocrit 45.5 % (37-47); Base Excess ABG -18.4 mmol/L (-2.0-2.0); Blood Gas Allen Test Pos; Blood Gas Operator Identificat AMH; Blood Gas Sample Site Radial, right; Blood Gas Sample Type Arterial; Blood Gas Tidal Volume 0.45; Carboxyhemoglobin 1.9 %THgb (0.4-20.1); HGB O2 Sat 96.4 % (95-100); Ionized Calcium Level - ABG 1.3 mmol/L (1.1-1.4); Methemoglobin 0.6 % (0.4-1.5); Oxygen Device VENT; Oxygen Saturation ABG 98.9; Potassium Level - ABG 3.8 mmol/L (3.5-5.0); Total Hemoglobin 14.8 g/dL (12-16)
[2022-11-14 12:21] LABS: ABG PH Result 7.04 (7.35-7.45)
[2022-11-14 12:22] LABS: HCG, Serum Qual Negative (Negative)
[2022-11-14 12:27] LABS: Troponin(5th) Baseline 6 ng/L (0-10)
[2022-11-14 12:29] LABS: Alanine Aminotransferase 147 U/L (0-33); Albumin Level 4.7 g/dL (3.5-5.2); Alkaline Phosphatase 111 U/L (35-105); Aspartate Amino Transferase 111 U/L (0-32); Blood Urea Nitrogen 10 mg/dL (6-20); Calcium 9.6 mg/dL (8.5-10.5); Chloride 95 mmol/L (98-107); Creatine Phosphokinase 304 U/L (26-192); Globulin 3.9 g/dL (1.3-4.6); Glucose 134 mg/dL (65-115); Lipase 30 U/L (13-60); Magnesium 2.7 mg/dL (1.7-2.3); Osmolality Calculated 285 mOsm/kg (285-295); Sodium 137 mmol/L (136-145); Total Bilirubin 0.5 mg/dL (0.15-1.2); Total Protein 8.6 g/dL (6.6-8.7)
[2022-11-14 12:31] LABS: Acetaminophen < 5.0 ug/mL (10-30); Alcohol Level < 10 mg/dL (0-10); Salicylate < 0.3 mg/dL (3-10)
[2022-11-14 12:32] LABS: Ammonia 533 umol/L (11-51)
[2022-11-14 12:34] LABS: Carbon Dioxide 8 mmol/L (22-29)
[2022-11-14 12:35] LABS: Lactic Sepsis W/Reflex 24.9 mmol/L (0.5-2.2)
[2022-11-14] MEDS: propofol 1,000 MG/100 ML INJ 9.8 MG IV (12:45)
--- NOTE | 2022-11-14 12:48 | PC.NURSE ---
Patient had $35 in ceron in her bra. Money was given to family.
--- NOTE | 2022-11-14 13:12 | XR_ITS ---
WS: [id number] XR chest 1V portable [id number] REASON FOR EXAM: dyspnea/cough FINDINGS: Endotracheal tube remains in proper position with the tip just above the level of the oumar. A nasog astric tube has been placed the tip is in the distal antrum of the stomach. Lungs are better expanded on this examination than on the exam from earlier today and the lung tinajero appear clear without acute abnormality. No other new finding or interval change. XR/XR chest 1V portable [id number] IMPRESSION: Properly positioned endotracheal tube and nasogastric tube. Better expansion of the lungs without lung opacities suspected on the exam of kaylie rodrigues today.
--- NOTE | 2022-11-14 13:25 | CT_ITS ---
WS: [id number] CT ABDOMEN AND PELVIS NONCONTRAST HISTORY: Abdominal pain TECHNIQUE: Imaging performed through the abdomen and pelvis. Coronal and sagittal reformats are submi tted. All CT scans at [facility] use at least one of these dose optimization techniques: auto mated exposure control; mA and/or kV adjustment per patient size (includes targeted exams where dose is matched to clinical indication); or iterative reconstruction. DLP: 884.20 mGy.cm COMPARISON: None available. Lower thorax: Mild dependent changes at the lung bases. Heart is normal size. Nasogastric tube noted. Liver: Normal size liver. No mass or bile duct dilatation. Gallbladder: Prior cholecystectomy. Pancreas: Normal size and attenuation. Normal pancreatic duct. No pancreatitis or mass. Spleen: Normal. Adrenal glands: Normal. No mass. Right kidney: Normal size kidney with no mass or hydronephrosis. Left kidney: Normal size kidney with no mass or hydronephrosis. Aorta: Normal abdominal aorta, no aneurysm or atherosclerosis. No free fluid, intraperitoneal air or significant lymphadenopathy. GI tract: Nasogastric tube in the stomach with tip directed towards the antrum and duodenum. There is mild fluid and air distention of the stomach. No small bowel obstruction. No evidence for ischemia b ut there is significant artifact through the abdomen and pelvis due to external life devices. Abdominal wall: Negative. No hernia. Pelvis: Carcamo catheter in the nondistended urinary bladder. Small amount of air in the bladder from t he Carcamo catheter placement. Uterus and ovaries are identified. Osseous structures: Unremarkable. CT/CT abdomen pelvis wo con [id number] IMPRESSION: 1. No acute abdominal or pelvic abnormalities are identified. 2. Study is compromised by significant artifact from external wires and cathet ers. 3. Nasogastric tube in good position with the tip directed towards the stomach antrum. 4. No renal obstruction. 5. No free air or free fluid.
[2022-11-14 13:27] LABS: INR 1.27 (0.8-1.2)
[2022-11-14 13:28] LABS: Partial Thromboplastin Time 37.5 SECONDS (23.9-36.7)
[2022-11-14 13:32] LABS: ABG PCO2 43.4 mmHg (35-45); ABG PH Result 7.29 (7.35-7.45); Alveolar-Arterial Oxygen Gradi 3.9 mmHg (5-10); Arterial Blood Gas Hematocrit 42.6 % (37-47); Base Excess ABG -5.9 mmol/L (-2.0-2.0); Blood Gas Allen Test Pos; Blood Gas Operator Identificat AMH; Blood Gas Sample Site Radial, right; Blood Gas Sample Type Arterial; Blood Gas Tidal Volume 0.45; HCO3 ABG 20.7 mmol/L (22-26); HGB O2 Sat 97.2 % (95-100); Ionized Calcium Level - ABG 1.2 mmol/L (1.1-1.4); Methemoglobin 0.9 % (0.4-1.5); Oxygen Device VENT; Oxygen Saturation ABG > 100.0; Potassium Level - ABG 3.8 mmol/L (3.5-5.0); Total Hemoglobin 13.9 g/dL (12-16)
[2022-11-14 13:43] LABS: Add Urine Microscopic? YES; Bilirubin Urine Neg (Negative); Blood Urine 3+ (Negative); Glucose Urine UA Norm (Normal); Ketones Urine 1+ (Negative); Leukocyte Esterase Urine Negative (Negative); Nitrate Urine Negative (Negative); Protein Urine Trace (Negative); Specific Gravity, Urine 1.025 (1.005-1.030); Urine Appearance Clear (CLEAR); Urine Color Yellow (Yellow); Urobilinogen Urine Norm (Negative); pH Urine 5 (5-7)
[2022-11-14 13:43] LABS: Reflex Lactate Order REFLEX LACTIC ORDERD
[2022-11-14 13:46] LABS: Bacteria Urine TRACE /hpf; RBC Urine RARE /hpf (0-2); Squamous Epithelial Cell Urine RARE /hpf (0-5); WBC Urine RARE /hpf (0-5)
[2022-11-14 13:54] LABS: Amphetamines Screen Urine Positive (Negative); Barbiturates Screen Urine Negative (Negative); Benzodiazepines Screen Urine Negative (Negative); Cocaine Screen Urine Negative (Negative); Opiate Screen Urine Negative (Negative); PCP Screen Urine Negative (Negative); THC Screen Urine Positive (Negative)
[2022-11-14 14:02] LABS: Ammonia 48 umol/L (11-51)
[2022-11-14 14:12] LABS: Troponin 5 2HR 149.6 ng/L (0-10); Troponin 5 2HR Delta 143.6 ABS# (0-10)
[2022-11-14] MEDS: sodium chloride 0.9% 2,449.41 ML 2449.41 ML IV (14:17)
[2022-11-14] MEDS: lactulose oral liq 20 gm/30 mL UDC 30 GM NG-TUBE (14:18)
--- NOTE | 2022-11-14 14:20 | CT_ITS ---
WS: [id number] CTA CHEST WITH CT ABDOMEN AND PELVIS. HISTORY: Seizure. Patient is intubated. Follow-up. TECHNIQUE: CT angiogram is performed through the chest. Additional imaging is performed through the a bdomen and pelvis with IV contrast. Sagittal and coronal reformats have been submitted. MIP imaging also reviewed. All CT scans at [facility] use at least one of these dose optimization techniqu es: automated exposure control; mA and/or kV adjustment per patient size (includes targeted exams whe re dose is matched to clinical indication); or iterative reconstruction. Contrast: Omnipaque 350; 95 cc IV. DLP: 1087.03 mGy.cm COMPARISON: Study earlier the same day, noncontrast. Chest CTA: Patient is intubated. Nasogastric tube in good position. Good opacification of the pulmona ry arteries. No significant pulmonary emboli are identified at least through the segmental branches a nd some of the subsegmental branches. Pulmonary artery size is normal. No RIGHT heart strain. Normal- sized thoracic aorta. There is mild LEFT heart enlargement. Mild dependent changes bilaterally. No pn eumothorax. No pulmonary contusion. No pneumonia. No adenopathy. Abdomen CT: Normal size liver and spleen. Prior cholecystectomy. No bile duct dilatation. Normal size pancreas. No adrenal mass. Normal kidneys and aorta. No ascites. No free fluid or free air. Normal GI tract. No obstruction. No ischemic changes are identified. Pelvic CT: Carcamo catheter present in a nondistended urinary bladder. Small amount of fluid and air re main within the urinary bladder. Uterus is midline. Small RIGHT ovarian follicles. Mild curvature thoracic and lumbar spines. No fractures are identified. CT/CT angio chest w abd pel w con IMPRESSION: 1. No pulmonary embolism. 2. Mild LEFT heart enlargement. 3. No RIGHT heart strain. 4. No pneumothorax or pulmonary contusion. 5. Nasogastric and endotracheal tubes are placed in good position. 6. No GI tract obstruction. There is high density contrast in the stomach that was not present on the prior study. No oral contrast was given by radiology th rough the nasogastric tube. After speaking to Dr. Sylvester this was due to medi cation given via the NG tube within the emergency department.
[2022-11-14] MEDS: clindamycin 600 MG/50 ML PREMIX 100 MG IV (14:21)
--- NOTE | 2022-11-14 14:21 | ECG_ITS ---
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 Measurements Intervals [place] Rate: 68 P: 147 WI: 157 QRS: 116 QRSD: 89 T: 129 QT: 468 QTc: 501 Interpretive Statements SINUS RHYTHM ARM LEADS REVERSED [INVERTED P AND QRS IN I] Compared to ECG 11/14/2022 12:59:32 Sinus tachycardia no longer present Electronically Signed On 11-14-2022 16:44:01 CDT by Fernando Hudson M.D. [id number]
--- NOTE | 2022-11-14 14:24 | PM.HP ---
Providers/Chief Complaint Chief Complaint: unresponsive/seizures History of Present Illness Kathy Retana is a 32 year old female with past medical history of hepatitis C, chronic methadone, remote h/o seizure use was brought into the ER today via EMS from an outside stool where she was found to be in collapse state. After the bystanders she had an episode of seizure and she fell on her face. When EMS saw her she was given 10 mg of IV Versed and brought to the ER. In the ER she was intubated to protect her airway as she was obtunded and found to have an bag failed with amphetamines stuck to her breast Blood work in the ER showed a white count 13,000 with hemoglobin of 14.7, platelet of 335, INR of 1.27, ABG repeated 7.29, PCO2 43, PO2 of 292, chemistry showing a sodium 137, potassium of 4, bicarb of 8, creatinine of 0.9, lactate of 24.9, magnesium of 2.7, AST/ALT of 111/147, alkaline phosphatase is 111, ammonia level of 48, baseline troponin of 6 with a troponin delta of 150 in 2 hrs Further history taken from the patient's life partner states he was recently being told that she has a very remote history of seizures but not on medication has not had any recent seizures recently. She used to use amphetamines till around a month ago. As per the boyfriend patient and himself were consuming alcohol last night and she had around 25-30 shots of fireball alcohol. Review of Systems General: Reports: ROS unobtainable due to endotracheal tube Medications/Allergies Home Medications Medication Instructions Recorded Confirmed Last Taken Type ibuprofen 800 mg tablet 800 mg PO TID #45 tabs 01/30/22 11/14/22 Unknown Rx methadone 40 mg soluble tablet 130 mg PO DAILY 11/14/22 11/14/22 11/14/22 History Allergies Allergy/AdvReac Type Severity Reaction Status Date / Time cefaclor [From [facility]] Allergy Unknown Verified 11/14/22 11:55 erythromycin base Allergy Unknown Verified 11/14/22 11:55 Penicillins Allergy Unknown Verified 11/14/22 11:55 PFSH Acute PFSH: Medical History (Updated 11/14/22 @ 15:36 by Luis Martinez MD) Hepatitis C Methadone use Surgical History (Updated 11/14/22 @ 15:54 by Luis Martinez MD) S/P cholecystectomy Family History (Updated 11/14/22 @ 15:54 by Luis Martinez MD) Other Hypertension Seizure Social History (Updated 11/14/22 @ 15:55 by Luis Martinez MD) Smoking and tobacco status: current every day smoker Alcohol intake: current Alcohol intake frequency: few times a week Substance/Drug Use: current Substance/Drug use type: Amphetamines Caregiver/support person: Yes Lives independently: Yes Household members: family and other Vitals/I&O/Wt Last Vital Signs Temp 97.4 F L 11/14/22 11:47 Pulse 97 11/14/22 11:47 Resp 14 11/14/22 11:55 BP 131/78 11/14/22 11:47 Pulse Ox 99 11/14/22 11:47 O2 Del Method 11/14/22 11:47 FiO2 40 11/14/22 11:55 11/13/22 11/14/22 11/14/22 22:59 06:59 14:59 Intake Total 3.757 / 3.757 Balance 3.757 / 3.757 Weight last 48 hrs Weight 81.647 kg Physical Exam Narrative: General: Sedated, obtunded, intubated, shallow ulcer present on the base of left first finger HEENT: PERRLA, pupils bilaterally equal and reactive Chest: No Giurgius or breath sounds all over lung tinajero with decreased air entry bilaterally in lower zone CVS: S1-S2 regular, no murmurs, no tachycardia, no gallops, no rubs Abdomen: Soft, nontender, no organomegaly, bowel sounds present, morbidly obese Neuro: Intubated, sedated Data 11/14/22 11:50 11/14/22 11:50 A&P Assessment and plan (1) Respiratory failure: (2) Syncope and collapse: (3) High anion gap metabolic acidosis: (4) Amphetamine abuse: (5) Lactic acidosis: (6) Elevated troponin: (7) Alcohol abuse: (8) Transaminitis: (9) Seizure: (10) Hepatitis C: (11) Methadone use: Takes 130 mg of methadone daily. For now switch to Dilaudid 0.2 mg every 6 hourly to avoid withdrawal to pain medications. Plan 32-year-old lady who was brought to the ER in a collapsed state after found at a local store after she was found to have a possible seizure found to be having severe lactic acidosis, high negative metabolic acidosis, urine drug screen positive for amphetamine with history of alcohol abuse last night. Syncope and collapse: Possible seizure: Very remote history of seizure in the past. Not on any active medications. Given 1 g of Keppra in the ER. Hold off any further Keppra for now. If has more seizures will start on Keppra 500 mg twice daily. Check urine drug screen, alcohol level, blood culture, urine culture. Banana bag. Normal saline at 100 cc/h afterwards. Respiratory failure: Intubated in the ER for protection of airway. ABG. DuoNebs every 6 hour, budesonide twice daily. Concern for possible aspiration. Wean ventilator keeping saturation over 90% High anion gap metabolic acidosis: Most likely in setting of lactic acidosis. Banana bag bolus followed by normal saline at 100 cc/h. Check CTA chest abdomen pelvis to rule out bowel ischemia. Blood cultures, MRSA swab, urine Legionella, bacterial antigen, Sputum culture, procalcitonin. 150 mg of bicarb one-time. Repeat BMP Q8 hourly. Empirically start on vancomycin and meropenem for now. Will de-escalate antibiotics rapidly if remains hemodynamically stable and afebrile. Elevated troponin: Significant delta troponin. Start on heparin drip. Troponin cycled. EKG so far not concerning for ST elevation RI. CTA chest abdomen pelvis as above. Continue to monitor. Cannot rule out PE. Stat echocardiogram. Amphetamine/alcohol abuse: Check alcohol level. Urine drug screen positive for amphetamines and marijuana. Check hepatitis panel, HIV. Patient does have history of hepatitis in the past. Not sure if treated or not. Transaminitis: Most likely in setting of hepatitis C. Continue to monitor. Check INR. Seizure disorder: Remote history. Not on medication. Could be secondary to amphetamine abuse. Continue to monitor. Hold off on treatment for now. Anesthesia: Versed, fentanyl. Glycemic control: Not needed. Check A1c. Nutrition: NPO. CODE STATUS: Full code PUD prophylaxis: Protonix DVT prophylaxis: Heparin drip Discharge planning: Home with caregiver once medically stable. Admit to ICU. This documentation was created by [employer] form building supervisor software. Every effort was made to ensure accuracy of form building supervisor. Any obvious errors or omissions should be clarified with the author of the document. Procedures Time out/Consent Time Out Performed: Yes Consent for Procedure: Consent obtained from other (indicate) (Life partner) Central Line Placement^ Right Femoral: Time out performed: Yes Patient placed on monitor/pulse ox: Yes MD prep: mask, gown and gloves Central line prep: Povidone-Iodine 1%, Chlorhexidine scrub and sterile drapes applied Local anesthesia used: lidocaine 2% Amount of anesthesia used (ml): 5 Ultrasound used for placement: Yes Central line lumen inserted: triple Post procedure: sutured in place, good blood return, all ports aspirated, flushed, capped and sterile dressing applied Patient tolerated procedure: well Complications: none Attestations Medical Necessity Statement*: Admission for more than 2 midnights for management of respiratory failure, had gap metabolic acidosis, lactic acidosis in setting of amphetamine abuse while seizures are ruled out Coding Level of Care Code Critical Care >/= 30 minutes Critical care time (in minutes): 120 The high probability of a clinically significant, sudden or life threatening deterioration, as referenced in this documentation, required my full and direct attention, intervention and personal management. The critical care time shown is in addition to time spent performing any reported separately billable procedures and includes the following: [x] Data and vital sign review and interpretation [x] Patient assessment, examination and intervention [x] Medication orders and management [x] Patient/Family updates as able [x] Care Coordination and Documentation. Other Coding Information This patient has a high probability of clinically significant, sudden or life threatening deterioration of the patient's (neurological/pulmonary/cardiac/renal/ID/endocrine) systems required my full, direct attention, the highest level of physician preparedness for urgent intervention and personal management. I managed/supervised life or organ supporting interventions that required frequent physician assessment. I devoted my full attention in the ICU to the direct care of this patient for the period of time indicated above. Time I spent with family or surrogate(s) is included only if the patient was incapable of providing necessary information or participating in decision making. This time includes the following services provided: Telemetry review Mechanical Ventilation Hemodynamic interpretation, assessment and management Review and interpretation of CXR Review and interpretation of lab values Review and interpretation of microbiologic data and culture results Review of medications and administration Review and interpretation of Nutrition requirements and management Discussion of management with other consultants and services Clinical update to family members Diagnoses Respiratory failure J96.90 Syncope and collapse R55 High anion gap metabolic acidosis E87.29 Amphetamine abuse F15.10 Lactic acidosis E87.20 Elevated troponin R77.8 Alcohol abuse F10.10 Transaminitis R74.01 Seizure R56.9 Hepatitis C B19.20 Methadone use F11.90
--- NOTE | 2022-11-14 14:28 | USCV_ITS ---
Kathy Retana Age: 32 Gender: F : 1990 Exam Date: 11/14/2022 16:54 Ordering Phys: Luis Martinez MD Technologist: Mary Aguirre Exam Location: [facility] [place] Indication: elevated troponin/ syncope BP: 128 / 87 HR: 77 Rhythm: Sinus Technical Quality: Adequate MEASUREMENTS (Male / Female) Normal Values 2D ECHO LV Diastolic Diameter PLAX 3.9 cm 4.2 - 5.9 / 3.9 - 5.3 cm LV Systolic Diameter PLAX 3.3 cm LV Chamber Size 4.0 cm IVS Diastolic Thickness 0.9 cm 0.6 - 1.0 / 0.6 - 0.9 cm IVS Systolic Thickness 0.9 cm LVPW Diastolic Thickness 1.2 cm 0.6 - 1.0 / 0.6 - 0.9 cm LVPW Systolic Thickness 1.4 cm RV Chamber Size 2.2 cm LVOT Diameter 2.0 cm LV Ejection Fraction 2D Teich 33.1 % LV Ejection Fraction MOD 2C 46.6 % LV Ejection Fraction 2C AL 43.9 % LA Diameter 2.8 cm LA Width 3.1 cm LA Height 3.5 cm RA Width 2.8 cm RA Height 3.1 cm Aorta at Sinotubular Diameter 3.0 cm M-MODE Aortic Annulus Diameter 3.4 cm LA Ao Ratio MM 1.0 MV E Point Septal Separation 0.4 cm DOPPLER AV Peak Velocity 111.0 cm/s LVOT Peak Velocity 101.0 cm/s AV Area Cont Eq vti 3.1 cm squared AV Area Cont Eq pk 2.9 cm squared MV Area PHT 5.8 cm squared Mitral E to A Ratio 0.9 MV E' Velocity 35.5 cm/s Mitral E to MV E' Ratio 12.7 Mitral E to LV E' Lateral Ratio 18.2 Mitral E to LV E' Septal Ratio 9.8 TR Peak Velocity 138.9 cm/s TR Peak Gradient 7.7 mmHg TR Mean Velocity 137.2 cm/s TR Mean Gradient 8.8 mmHg TR Velocity Time Integral 48.0 cm TV Peak E Velocity 54.0 cm/s Right Atrial Pressure 15.0 mmHg Pulmonary Artery Systolic Pressu 22.7 mmHg RV Acceleration Time 0.2 s RV Ejection Time 0.4 s RV AcT/ET 0.4 FINDINGS Left Ventricle Severe diffuse hypokinesia of the mid and apical anterior wall, mid and apical lateral and inferior wall segments with a somewhat dyskinetic septum. LV ejection fraction around 30 to 35%. Right Ventricle The right ventricle is normal in size and function. Right Atrium The right atrium is normal in size. Left Atrium The left atrium is normal in size. Mitral Valve Trace of mitral regurgitation Aortic Valve No gross abnormalities noted Tricuspid Valve Trace of tricuspid insufficiency Pulmonic Valve No gross abnormalities noted Pericardium No pericardial effusion. Aorta Normal ascending aorta dimension. IVC Normal inferior vena cava. CONCLUSIONS Normal LV size with a diminished ejection fraction of 30 to 35%. Diffuse hypokinesia of the LV apex may suggest a Takotsubo syndrome Trace of mitral and tricuspid regurgitation No intracardiac masses No pericardial effusion No similar previous studies are available for comparison Dr Magdaleno Dickinson MD FAC (Electronically Signed) Final Date: 14 November 2022 18:19 S
--- NOTE | 2022-11-14 14:29 | PC.PHAR ---
pt gets her methadone 130 mg daily from [facility] they gave enough for pt to have until 11/21/22
[2022-11-14 14:38] LABS: Lactic Acid level (Lactate) 1.5 mmol/L (0.5-2.2)
--- NOTE | 2022-11-14 14:59 | CT_ITS ---
WS: [id number] CT CERVICAL SPINE HISTORY: fall TECHNIQUE: Contiguous 2.0 mm axial imaging performed through the entire cervical spine. Sagittal and coronal reformats also performed. All CT scans at [facility] use at least one of these dose o ptimization techniques: automated exposure control; mA and/or kV adjustment per patient size (include s targeted exams where dose is matched to clinical indication); or iterative reconstruction. DLP: 243.87 mGy.cm COMPARISON: None available. Normal cervical alignment. Craniocervical junction, atlantodental interval and C1-C2 alignment is nor mal. Patient is intubated. Nasogastric tube is noted. C2-C3: Normal. C3-C4: Normal. C4-C5: Normal. C5-C6: Normal. C6-C7: Normal. C7-T1: Normal. Soft tissues are normal. Lung apices are clear. CT/CT cervical spin wo con* [id number] IMPRESSION: Normal cervical spine.
[2022-11-14] MEDS: iohexol 350 mg/mL 500 mL Btl (per mL) IV (15:09)
[2022-11-14 15:21] LABS: Iron 102 ug/dL (37-145); Percent Saturation 18.3 % (20-50); Total Iron Binding Capacity 556 mcg/dl; Unsaturated Iron Binding 454 ug/dL (112-347)
[2022-11-14 15:27] LABS: Procalcitonin 0.04 ng/mL (0-0.5)
[2022-11-14 15:37] LABS: Vitamin B12 726 pg/mL (232-1245)
[2022-11-14 15:38] LABS: Folate Level 19.5 ng/mL (4.8-37.3)
[2022-11-14 15:39] LABS: ABG PCO2 42.7 mmHg (35-45); ABG PH Result 7.34 (7.35-7.45); Alveolar-Arterial Oxygen Gradi 2.8 mmHg (5-10); Arterial Blood Gas Hematocrit 38.9 % (37-47); Base Excess ABG -3.1 mmol/L (-2.0-2.0); Blood Gas Allen Test Pos; Blood Gas Operator Identificat CAK; Blood Gas Sample Site Radial, left; Blood Gas Sample Type Arterial; Blood Gas Tidal Volume 0.45; Carboxyhemoglobin 1.5 %THgb (0.4-20.1); HCO3 ABG 22.7 mmol/L (22-26); HGB O2 Sat 97.5 % (95-100); Ionized Calcium Level - ABG 1.2 mmol/L (1.1-1.4); Methemoglobin 0.8 % (0.4-1.5); Oxygen Device VENT; Oxygen Saturation ABG 99.8; Total Hemoglobin 12.7 g/dL (12-16)
[2022-11-14] MEDS: folic acid 1 MG, multivitamin inj 10 ML, thiamine 100 MG in sodium chloride 0.9% 1,000 ML 252.8 MG IV (15:52)
[2022-11-14] MEDS: sodium chloride 0.9% 1,000 ML 75 ML IV (15:56)
--- NOTE | 2022-11-14 16:03 | PC.NURSE ---
Family never showed up, $35 was given to ICU nurse.
--- NOTE | 2022-11-14 16:03 | PC.NURSE ---
Versed and Fentanyl drips were handed over to ICU.
[2022-11-14] MEDS: sodium bicarbonate 1 mEq/mL SDV 50mL 100 MEQ IVP (16:09)
[2022-11-14] MEDS: HYDROmorphone 1 mg/mL INJ 1 mL 0.2 MG IVP ×2 (16:33→20:38)
[2022-11-14 16:36] LABS: Procalcitonin 0.07 ng/mL (0-0.5); Thyroid Stimulating Hormone 0.71 uIU/mL (0.27-4.20)
[2022-11-14] MEDS: heparin drip 25,000 UNIT/500 ML PREMIX 23 UNIT IV (16:39)
[2022-11-14] MEDS: heparin 5,000 unit/mL INJ 1 mL IV (16:40)
[2022-11-14 16:49] LABS: Hepatitis A Antibody IgM Non-Reactive (Nonreactive); Hepatitis B Core AB, Total Non-Reactive (Nonreactive); Hepatitis B Surface AB 42.5 (11.5-1000); Hepatitis B Surface Antigen Non-Reactive (Nonreactive); Hepatitis C Virus Antibody Reactive (Nonreactive)
[2022-11-14 16:54] LABS: Alanine Aminotransferase 111 U/L (0-33); Albumin Level 3.9 g/dL (3.5-5.2); Alkaline Phosphatase 81 U/L (35-105); Anion Gap 12.2 (5-19); Aspartate Amino Transferase 82 U/L (0-32); Blood Urea Nitrogen 12 mg/dL (6-20); Carbon Dioxide 24 mmol/L (22-29); Chloride 102 mmol/L (98-107); Globulin 2.6 g/dL (1.3-4.6); Glomerular Filtration Rate 83.7 mL/min (90-130); Glucose 84 mg/dL (65-115); Osmolality Calculated 277 mOsm/kg (285-295); Potassium 4.2 mmol/L (3.5-5.1); Sodium 134 mmol/L (136-145); Total Bilirubin 0.4 mg/dL (0.15-1.2); Total Protein 6.5 g/dL (6.6-8.7)
[2022-11-14] MEDS: meropenem 1,000 MG in sodium chloride 0.9% (plus) 50 ML 100 MG IV ×2 (16:59→22:02)
[2022-11-14] MEDS: vancomycin 1,250 MG/250 ML PIGGYBACK 250 MG IV (17:03)
--- NOTE | 2022-11-14 17:09 | PC.NURSE ---
37.443 mls of Propofol wasted, witnessed by Kami IRELAND
--- NOTE | 2022-11-14 17:16 | PC.NURSE ---
Patient arrived to ICU on vent. Central line inserted per Dr. Andres.
--- NOTE | 2022-11-14 17:19 | ECG_ITS ---
[facility] Test Date: 2022-11-14 Pat Name: Kathy Retana Department: Room: ICU11 Gender: Female Echocardiography Technologist: : 1990 Requested By: Saturnino Wilburn Order Number: [id number] Eleonora MD: Fernando Hudson M.D. Measurements Intervals [place] Rate: 78 P: -7 WA: 158 QRS: 56 QRSD: 89 T: 68 QT: 454 QTc: 518 Interpretive Statements SINUS RHYTHM PROLONGED QT INTERVAL Compared to ECG 11/14/2022 14:21:08 Prolonged QT interval now present Electronically Signed On 11-14-2022 23:39:57 CDT by Fernando Hudson M.D. [id number]
[2022-11-14 17:30] LABS: HIV 1 & 2 Antibody Non-Reactive (Non-Reactiv); HIV 1 & 2 Antigen Non-Reactive (Non-Reactiv)
--- NOTE | 2022-11-14 17:41 | PC.PHAR ---
Pharmacy to dose Vancomycin, With the patients vitals and laboratory results, it was determined the patient should be on 1250 mg every 12 hours that should result in a predicted peak of 37.6 mcg/ml and a trough of 17.60 mcg/ml. Trough orders will be placed prior to the 4th dose. Will continue to monitor the patient's renal function and make adjustments as needed. Please let us know if there is anything else we can help with. Thanks, Refugio Bird, Pharm.D
--- NOTE | 2022-11-14 18:09 | PC.NURSE ---
Plan to keep patient resting overnight, begin weaning medications to extubate in the morning per Dr. Martinez
[2022-11-14 18:46] LABS: Troponin 5 6HR 356.3 ng/L (0-10); Troponin 5 6HR Delta 350.3 ng/L (0-12)
[2022-11-14 23:27] LABS: Partial Thromboplastin Time 235.9 SECONDS (23.9-36.7)
[2022-11-15] VITALS (21 sets, daily range): BP systolic 107–130; BP diastolic 71–108; PULSE 64–93; RESP 14–23; TEMP 36.1–37.2; O2SAT 91–100; BMI 30.9
[2022-11-15] MEDS: vancomycin 1,250 MG/250 ML PIGGYBACK 250 MG IV (02:35)
[2022-11-15] MEDS: HYDROmorphone 1 mg/mL INJ 1 mL 0.2 MG IVP (03:07)
--- NOTE | 2022-11-15 03:30 | PC.NURSE ---
Currently on 175mcg/hour of fentanyl and 6mg/hr of versed. Patient sitting straight up in bed attempting to pull out OETT and pulling at restraints and kicking around. Notified Dr. Schwarz, chart reviewed, order given to extubate patient. Sedation turned down, notified Becky RT of order to extubate patient.
[2022-11-15] MEDS: sodium chloride 0.9% 1,000 ML 75 ML IV (03:35)
[2022-11-15 04:29] LABS: INR 1.11 (0.8-1.2)
--- NOTE | 2022-11-15 04:38 | PC.NURSE ---
0426 -- extubated patient, restraints removed. 0435 -- patient becomes irate and pulling things off. patient pulled c-collar off after being told not to. attempting to get out of bed. states she wants to sign herself out of the hospital. Notified Dr. Schwarz, coming to talk with patient.
[2022-11-15 04:40] LABS: Lactic Sepsis W/Reflex 0.7 mmol/L (0.5-2.2)
--- NOTE | 2022-11-15 04:41 | PC.NURSE ---
Addendum entered by Светлана Cook RN 11/15/22 04:42: I Светлана Coko RN witnessed waste of Versed and Fentanyl. Original Note: wasted 32.117 ml of versed and 220.917 ml of fentanyl.
[2022-11-15 04:44] LABS: Procalcitonin 0.18 ng/mL (0-0.5)
[2022-11-15 04:46] LABS: Alanine Aminotransferase 103 U/L (0-33); Albumin Level 3.5 g/dL (3.5-5.2); Alkaline Phosphatase 73 U/L (35-105); Anion Gap 15.3 (5-19); Aspartate Amino Transferase 102 U/L (0-32); Blood Urea Nitrogen 12 mg/dL (6-20); Calcium 8.1 mg/dL (8.5-10.5); Carbon Dioxide 23 mmol/L (22-29); Chloride 110 mmol/L (98-107); Chol HDL Ratio 3.91 mg/dL (0.0-4.40); Cholesterol 133 mg/dL (0-200); Globulin 2.8 g/dL (1.3-4.6); Glomerular Filtration Rate 83.7 mL/min (90-130); Glucose 78 mg/dL (65-115); HDL Cholesterol 34 mg/dL (60-100); LDL Cholesterol Calculated 81 mg/dL (50-129); LDL HDL Ratio 2.38 RATIO (0.00-3.22); Magnesium 2.5 mg/dL (1.7-2.3); Osmolality Calculated 297 mOsm/kg (285-295); Phosphorus 5.4 mg/dL (2.5-4.5); Potassium 4.3 mmol/L (3.5-5.1); Sodium 144 mmol/L (136-145); Total Bilirubin 0.5 mg/dL (0.15-1.2); Total Protein 6.3 g/dL (6.6-8.7); Triglycerides 90 mg/dL (0-150)
--- NOTE | 2022-11-15 04:58 | PC.NURSE ---
0425 -- Dr. Schwarz to bedside to talk with patient because patient stating that she is wanting to leave AMA. Order given for clear liquids and to d/c patients [place]. Patient states she will stay for now. Attempting to get out of bed, states I feel dizzy . Explained to patient that she can not be getting out of bed for her safety.
[2022-11-15 05:06] LABS: Basophils % 0.2 %; Eosinophils % 0.2 %; Lymphocytes # 1.1 10^3/uL (0.8-4.8); Lymphocytes % 18.8 %; Mean Corpuscular HGB Conc 32.5 g/dL (30.0-36.0); Mean Corpuscular Hemoglobin 26.8 pg (28.0-34.0); Mean Corpuscular Volume 82.6 fl (81-99); Mean Platelet Volume 11.6 fL (7.4-10.4); Monocytes # 0.4 10^3/uL (0.2-0.9); Monocytes % 6.6 %; Neutrophils # 4.37 10^3/uL (1.8-7.7); Neutrophils % 73.9 %; Nucleated Red Blood Cells % 0 %; Platelet Count 186 10^3/cmm (130-400); Red Blood Count 4.47 10^6/uL (4.1-5.3); Red Cell Distribution Width 13.6 % (12.1-15.1); White Blood Count 5.9 10^3/uL (4.0-10.0)
[2022-11-15 05:23] LABS: Hematocrit 36.9 % (37.0-47.0)
[2022-11-15 05:38] LABS: Estmated Average Glucose 80; Hemoglobin A1C 4.4 % (4.0-6.0)
--- NOTE | 2022-11-15 06:02 | PC.RESP ---
0426 Patient extubated per order.Rn at bedside and assisted. Patient tolerated well. Oxygen Saturations on room air , 99-100%. Patient immediately talking. and asking questions about what she is doing here. RN answering questions
[2022-11-15] MEDS: meropenem 1,000 MG in sodium chloride 0.9% (plus) 50 ML 100 MG IV ×3 (06:05→22:52)
--- NOTE | 2022-11-15 08:14 | ECG_ITS ---
[facility] Test Date: 2022-11-15 Pat Name: Kathy Retana Department: Room: ICU11 Gender: Female Manager News: : 1990 Requested By: Janet Luna Order Number: [id number] Eleonora MD: Magdaleno Dickinson M.D. Measurements Intervals [place] Rate: 82 P: 54 AK: 151 QRS: 47 QRSD: 89 T: 115 QT: 382 QTc: 446 Interpretive Statements SINUS RHYTHM NONSPECIFIC T-WAVE ABNORMALITY Compared to ECG 11/14/2022 17:19:51 T-wave abnormality now present Prolonged QT interval no longer present Electronically Signed On 11-15-2022 21:39:26 CDT by Magdaleno Dickinson M.D. [id number]
[2022-11-15] MEDS: ondansetron 2 mg/ML SDV 2 mL 4 MG IVP (08:16)
--- NOTE | 2022-11-15 08:26 | P.PN_ITS ---
Subjective Subjective: Patient awakened and was extubated early this morning. Presently complaining of a mild headache and some nausea. She reported to nursing staff that she wanted to leave. I spoke with her for a while. She tried to explain events of yesterday but does not recall being at a store or getting to a store nor the events immediately preceding the seizure. She states that she only had a few shots of alcohol yesterday, maybe 3-5. Denies current drug use. Has been clean for 4 years. Has been told that she was found with a bag of drugs in her bra but she does not recall how that got there. States that she would not use drugs as she does not want to lose her children. Vitals/I&O/Wt Last Vital Signs Temp 97.4 F L 11/15/22 04:00 Pulse 93 11/15/22 06:00 Resp 16 11/15/22 06:00 BP 107/92 11/15/22 06:00 Pulse Ox 99 11/15/22 06:00 O2 Del Method 11/15/22 06:00 FiO2 24 11/15/22 04:00 11/14/22 11/15/22 11/15/22 22:59 06:59 14:59 Intake Total 4039.160 / 4042.917 1822.700 / 5865.617 50 / 50 Output Total 2900 / 2900 1200 / 4100 Balance 1139.160 / 1142.917 622.700 / 1765.617 50 / 50 Weight last 48 hrs Weight 81.647 kg Physical Exam Narrative: Awake and alert, cooperative, superficial lacerations on the bridge of the nose and the right nasolabial fold extending to the cheek. Otherwise normocephalic. Pupils are equally reactive. Neck is supple without any JVD not ed. Lungs are clear to auscultation bilaterally without any rales rhonchi or wheezes noted cardiovascular exam reveals a regular rate and rhythm without any murmurs gallops or rubs abdomen is soft, nontender. Extremities with no pitting edema. Brisk capillary refill. Some scabbed sores on the top of first and second toes on the right foot, not in intertriginous areas. Sore to the left index finger noted (from burning marshmallows ), various tattoos noted. Speech clear, face symmetric, moves all extremities. Able to provide history but fuzzy on some details. Urinary Catheter Management: Carcamo: Cath Placed During This Visit: yes Reason for Continuing Indwelling Catheter: Accurate Measurement of Urinary Output in Critically Ill Patients Urinary Catheter Date of Insertion: 11/14/22 Urinary Catheter Time of Insertion: 13:00 Data 11/15/22 03:22 11/15/22 03:22 Micro: Microbiology 11/14/22 17:53 Blood Culture - Preliminary Blood SPECIMEN COLLECTED 11/14/22 16:54 Blood Culture - Preliminary Blood SPECIMEN COLLECTED 11/14/22 16:00 Legionella Urinary Antigen - Final Unknown Source A&P Assessment and plan (1) Syncope and collapse: Seizure per bystanders. With cardiac abnormalities identified, arrhythmia, hypotension either primary or orthostatic are within the differential. Substance use also a possibility with drug urine showing amphetamines and marijuana. Blood alcohol level was less than 10. No current evidence of infection though treated empirically with broad-spectrum antibiotics. (2) Seizure: Possible remote history of seizure disorder but not on any chronic medications. Treated with Versed in the field and given 1 g of IV Keppra in the emergency room. Has not had recurrent seizures since admission. (3) Respiratory failure: Acute hypoxic respiratory secondary to seizure. Required intubation for airway protection. Extubated overnight. Now resolved. (4) Elevated troponin: 2-hour troponin delta 143.6 with 6-hour troponin delta of 350.3. No prior cardiac history though does report a family history of heart disease in several relatives, details unclear. Reports that her maternal grandmother in her early 50s from a heart attack. Low HDL but normal cholesterol and triglyceride noted. (5) Cardiomyopathy: Newly identified cardiomyopathy with EF at 30 to 35%. Diffuse hypokinesis of the LV apex may suggest a Takotsubo syndrome per interpretation. No prior history of cardiomyopathy. In addition to Takotsubo, effect from substance use a consideration as is primary cardiac disease given reported family history. Other than syncope and seizure at presentation does not really describe chronic symptoms at this time. (6) High anion gap metabolic acidosis: Secondary to significant lactic acidosis value 24.9. Quickly resolved. Had had alcohol, described as fireball, several shots (not the 25-30 initially reported). Suspect secondary to hypoxemia and seizure at this time. Now resolved. (7) Lactic acidosis: Resolved. (8) Hepatitis C: Chronic, without current hepatic coma. Did have initial hyperammonemia, quickly normalized to 48 few hours later. No history of treatment. Hepatitis panel does show hepatitis C antibody with hepatitis C RNA currently pending. Hepat itis A and B are negative except for hepatitis B surface antigen at 42 consistent with immunity. HIV was checked and is negative also. (9) Transaminitis: Related to hepatitis C. (10) Alcohol abuse: She indicates she only had a few shots of alcohol rather than 20-30 shots as reported in H&P. 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 Has used previously. Last knowledgeable use sometime ago. Drug screen was positive for amphetamine and THC. Possibility of unknown consumption exists. (12) History of intravenous drug use in remission: Reports prior history of IV drug use clean for approximately 4 years. 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 Goes to methadone clinic weekly and reports compliance with protocols. Plan Leukocytosis, empirically covered with broad-spectrum antibiotics. Blood cultures no growth to date. Legionella antigen negative. Procalcitonin was normal. UA without evidence of infection. Negative test, due to start menstrual cycle soon likely factor with microscopic hematuria noted Normal TSH Normal hemoglobin A1c Dyslipidemia with low HDL Normal iron with low percent iron saturation, normal hemoglobin Initial CK of 304 Minor lacerations to face around the nose from fall After discussion patient is agreeable to stay at the present time with plan as outlined below. Recheck troponin and CK level this morning Repeat EKG Cardiology consultation, I spoke with Dr. Dickinson Presently we will continue heparin drip Telemetry monitoring Monitor for seizures Discontinue all benzodiazepines and narcotics presently ordered Resume methadone but start at a lower than usual dose given current vital signs; I have discussed this with Ms. Retana and plan is to escalate to usual dosage as she tolerates. Change IV fluids to KVO Tylenol presently for headache with maximum acetaminophen per day around 2 g Holding ibuprofen pending results of repeat CK level Zofran for nausea Triple antibiotic ointment to facial lacerations We will continue current antibiotics until cultures are negative x24 hours Pending cardiology evaluation anticipate transfer out of ICU later today Supportive care otherwise Findings, concerns and plans were discussed with patient. She had expressed a desire to leave but understands that potential serious medical abnormalities, primarily cardiac have been identified and is currently agreeable to stay though this could change. We will provide support and reassurance. CODE STATUS: Full code PUD prophylaxis: Protonix, changed to p.o. DVT prophylaxis: Heparin drip presently Discharge planning: Home once medically stable. Will need cardiology follow-up in addition to primary care. Attestations Medical Necessity Statement*: Requires ongoing inpatient stay secondary to cardiac abnormalities identified. Specific issues and plans as noted above. At high risk of recurrent syncopal event without appropriate initiation of treatment and further evaluation. Coding Level of Care Code Acute Code for Chg Fwd Diagnoses Syncope and collapse R55 Seizure R56.9 Respiratory failure J96.90 Elevated troponin R77.8 Cardiomyopathy I42.9 High anion gap metabolic acidosis E87.29 Lactic acidosis E87.20 Hepatitis C B19.20 Transaminitis R74.01 Alcohol abuse F10.10 Amphetamine abuse F15.10 History of intravenous drug use in remission F19.91 Methadone use F11.90
--- NOTE | 2022-11-15 08:30 | PC.NURSE ---
pt restless agitated at this time requesting to leave at this time .. need to take care of my children so i dont loose them... like i did my first 3.. does not remember what happend yesterday very unhapppy with being here using curse words and calling people names
[2022-11-15] MEDS: pantoprazole DR 40 mg Tablet PO (08:38)
[2022-11-15] MEDS: methadone 10 mg Tablet 40 MG PO (08:39)
[2022-11-15] MEDS: acetaminophen 325 mg Tablet 650 MG PO (08:44)
[2022-11-15 08:47] LABS: Troponin T (5th) Once 188 ng/L (0-10)
[2022-11-15 09:02] LABS: Creatine Phosphokinase 4053 U/L (26-192)
[2022-11-15 09:42] LABS: Partial Thromboplastin Time 86.2 SECONDS (23.9-36.7)
--- NOTE | 2022-11-15 09:46 | PC.NURSE ---
lab in to draw blood ,, cursing lab staff and refused to let them stick her
[2022-11-15] MEDS: methadone 10 mg Tablet 90 MG PO (09:57)
[2022-11-15 10:03] LABS: CKMB 10.5 ng/mL (0-5.34)
[2022-11-15 10:04] LABS: CKMB Relative Index 0.2 % (0.0-10.4)
--- NOTE | 2022-11-15 10:14 | PM.CONSULT ---
Providers/Reason For Consult Consulting Physician/Specialty*: BEATRIZ Dickinson MD/cardiology Reason for Consult*: Patient with elevated troponin T and abnormal echocardiogram Requesting Physician: Dr Luna Attending Physician: Janet Luna MD History of Present Illness History of Present Illness Method Mary Retana is a 32 year old female with a history of methamphetamine abuse, had episode of syncope yesterday. She is admitted to the hospital for further evaluation management. She had an echocardiogram done which revealed severe diffuse hypokinesia of the left ventricle with an ejection fraction of 30 to 35%. Cardiology consult is requested for further cardiac evaluation recommendations. This patient has a history of her multiple drug abuse. She used to be an opioid addict. She has not done any opioid for 4 years or so?. She is currently being followed up with the methadone clinic. She has been taking 130 mg of methadone a day. She apparently was abusing methamphetamine. Also has alcohol abuse history. She smokes marijuana as well. Yesterday she was coming out of a store and apparently had a seizure episode and collapsed to the floor. She was brought to the ER by ambulance. She was given 10 mg of Versed at the field. She was found to be obtunded in the ER. She got intubated for airway protection. She was extubated this morning. The echocardiogram revealed ejection fraction of 30 to 35%. Blood troponin T at the time of admission was in the normal range. She had a delta troponin of 143 at 2 hours and 350 at 6 hours Patient denies any chest pain or chest tightness. No unusual shortness of breath. She has no previous history for any cardiac illness. No history for diabetes, dyslipidemia. She has a history of hepatitis C. She also has a history of seizure disorder. Apparently she has not been taking medications for the seizure. She is being followed up by the behavioral health clinic. She is on a methadone program. Takes 730 mg of methadone a day. She was found to have packets of methamphetamine under her bra. Review of Systems Narrative: CONSTITUTIONAL: No fever or chills. EYES: No blurring of vision or other visual disturbances lately. ENT: No hoarseness of voice, auditory disturbances or sore throat. CARDIOVASCULAR: As mentioned above. RESPIRATORY: No significant cough. GASTROINTESTINAL: No hematemesis or melena. GENITOURINARY: No dysuria or hematuria. INTEGUMENTARY: She develops the blisters in her feet and and with the stress intubations. Currently she has unhealed blisters around the toes. NEURO: History of seizure disorder as mentioned above PSYCHIATRIC: No history of psychosis or major depression. HEMATOLOGIC: No bleeding disorders or significant anemia. ENDOCRINE: No history of polyuria or polydipsia. MUSCULOSKELETAL: No recent joint pain or swelling. ALLERGY/IMMUNOLOGY: As mentioned above. Medications/Allergies Home Medications Medication Instructions Recorded Confirmed Last Taken Type ibuprofen 800 mg tablet 800 mg PO TID #45 tabs 01/30/22 11/14/22 Unknown Rx methadone 40 mg soluble tablet 130 mg PO DAILY 11/14/22 11/14/22 11/14/22 History Allergies Allergy/AdvReac Type Severity Reaction Status Date / Time cefaclor [From [facility]] Allergy Unknown Verified 11/14/22 11:55 erythromycin base Allergy Unknown Verified 11/14/22 11:55 Penicillins Allergy Unknown Verified 11/14/22 11:55 Current Medications Generic Name Dose Route Start Last Admin Trade Name Freq PRN Reason Stop Dose Admin Acetaminophen 650 mg 11/15/22 07:41 11/15/22 08:44 Acetaminophen 325 Mg Tablet PO 650 mg Q8H PRN Administration Mild/Mod Pain Or Temp >/= 101 Heparin Sodium (Porcine) 0 unit 11/14/22 14:26 11/14/22 16:40 Heparin 5,000 Unit/Ml Inj 1 Ml IV 4,100 unit PRN PRN Administration Heparin weight-base protocol Protocol Heparin Sodium/Sodium Chloride 25,000 unit in 500 mls @ 0 mls/hr 11/14/22 14:30 11/15/22 03:30 Heparin Drip IV 12.25 unit/kg/hr .Q0M HALINA 20 mls/hr Titration Protocol Per Protocol Meropenem 1,000 mg/ Sodium 50 mls @ 100 mls/hr 11/14/22 14:30 11/15/22 07:18 Chloride IV Infused Q8H HALINA Infusion Protocol Vancomycin/PEG/NADA/Lysine/Water 1,250 mg in 250 mls @ 250 mls/hr 11/14/22 15:00 11/15/22 03:35 Vancocin IV Infused Q12H HALINA Infusion Ondansetron HCl 4 mg 11/14/22 15:06 11/15/22 08:16 Ondansetron 2 Mg/Ml Sdv 2 Ml IVP 4 mg Q8H PRN Administration vomiting, or N/V if npo Pantoprazole Sodium 40 mg 11/15/22 09:00 11/15/22 08:[address] 40 Mg Tablet PO 40 mg DAILY HALINA Administration PFSH Acute PFSH: Medical History 5 Hepatitis C not treated History of intravenous drug use in remission Methadone use Surgical History S/P cholecystectomy Family History Other Hypertension Seizure Social History Smoking and tobacco status: current every day smoker Alcohol intake: current Alcohol intake frequency: few times a week Substance/Drug Use: current Substance/Drug use type: Amphetamines Caregiver/support person: Yes Lives independently: Yes Household members: family and other Vitals/I&O/Wt Last Vital Signs Temp 97.4 F L 11/15/22 04:00 Pulse 90 11/15/22 08:17 Resp 22 H 11/15/22 08:39 BP 125/108 11/15/22 08:00 Pulse Ox 100 11/15/22 08:00 O2 Del Method 11/15/22 06:00 FiO2 24 11/15/22 10:00 11/14/22 11/15/22 11/15/22 22:59 06:59 14:59 Intake Total 4039.160 / 4042.917 1822.700 / 5865.617 600 / 600 Output Total 2900 / 2900 1200 / 4100 Balance 1139.160 / 1142.917 622.700 / 1765.617 600 / 600 Weight last 48 hrs Weight 180 lb Weight 180 lb Physical Exam Narrative: GENERAL: The patient is alert and oriented times three. Not in any acute distress. She keeps using curse words for every answers. HEENT: No significant pallor, icterus or lymphadenopathy.Oral cavity: There are no mucous membrane lesions. NECK: Trachea appears to be central. No masses noted. No JVD or thyromegaly appreciated. RESPIRATORY: Chest is symmetrical. No intercostals muscle retraction or any accessory muscle activation. There is no chest wall tenderness. Breath sounds are heard bilaterally. No rales or rhonchi heard. No evidence of any consolidation. BREASTS: Deferred. HEART: The heart sounds are normal. No S3 or S4. No significant murmurs. No pericardial rub ABDOMEN: No vessel pulsations or distention. No tenderness. No organomegaly appreciated. Bowel sounds are normally heard. : Deferred. RECTAL: Deferred. LYMPHATIC: No lymphadenopathy noted in the neck. EXTREMITIES: No edema or cyanosis. No clubbing. Extensive tattoo whelan are noted MUSCULOSKELETAL: No acute joint deformities or swelling SKIN: There are no significant rashes or ecchymosis. Healing blisters on the toes NEUROPSYCHIATRIC: The patient is alert and oriented x3. Not in acute distress. Answers to questions appropriately. Urinary Catheter Management: Carcamo: Cath Placed During This Visit: yes Reason for Continuing Indwelling Catheter: Accurate Measurement of Urinary Output in Critically Ill Patients Urinary Catheter Date of Insertion: 11/14/22 Urinary Catheter Time of Insertion: 13:00 Data 11/15/22 03:22 11/15/22 03:22 Other Labs: Laboratory Last Values WBC 5.9 10^3/uL (4.0-10.0) 11/15/22 03:22 RBC 4.47 10^6/uL (4.1-5.3) 11/15/22 03:22 Hgb 12.0 g/dL (11.5-15.3) 11/15/22 03:22 Hct 36.9 % (37.0-47.0) L 11/15/22 03:22 MCV 82.6 fl (81-99) D 11/15/22 03:22 MCH 26.8 pg (28.0-34.0) L 11/15/22 03:22 MCHC 32.5 g/dL (30.0-36.0) D 11/15/22 03:22 RDW 13.6 % (12.1-15.1) 11/15/22 03:22 Plt Count 186 10^3/cmm (130-400) D 11/15/22 03:22 MPV 11.6 fL (7.4-10.4) H 11/15/22 03:22 Neut % (Auto) 73.9 % 11/15/22 03:22 Lymph % (Auto) 18.8 % 11/15/22 03:22 [place] % (Auto) 6.6 % 11/15/22 03:22 Eos % (Auto) 0.2 % 11/15/22 03:22 Baso % (Auto) 0.2 % 11/15/22 03:22 Neut # (Auto) 4.37 10^3/uL (1.8-7.7) 11/15/22 03:22 Lymph # (Auto) 1.1 10^3/uL (0.8-4.8) 11/15/22 03:22 [place] # (Auto) 0.4 10^3/uL (0.2-0.9) 11/15/22 03:22 Eos # (Auto) 0.0 10^3/uL (0.0-0.8) 11/15/22 03:22 Baso # (Auto) 0.0 10^3/uL (0.0-0.1) 11/15/22 03:22 Nucleated RBC % (auto) 0 % 11/15/22 03:22 Nucleated RBCs # 0.0 /100WBC 11/15/22 03: PT 14.60 SECONDS (12.1-14.9) 11/15/22 03: INR 1.11 (0.8-1.2) 11/15/22 03:22 APTT 86.2 SECONDS (23.9-36.7) H D 11/15/22 09:06 Specimen Type Arterial 11/14/22 15:27 Sample Site Radial, left 11/14/22 15:27 ABG pH 7.34 (7.35-7.45) L 11/14/22 15:27 ABG pCO2 42.7 mmHg (35-45) 11/14/22 15:27 ABG pO2 140.0 mmHg (80.0-100.0) H 11/14/22 15:27 ABG HCO3 22.7 mmol/L (22-26) 11/14/22 15:27 ABG O2 Saturation 99.8 11/14/22 15:27 ABG Base Excess -3.1 mmol/L (-2.0-2.0) L 11/14/22 15:27 Johan Test Pos 11/14/22 15:27 A-a O2 Gradient 2.8 mmHg (5-10) L 11/14/22 15:27 Hematocrit 38.9 % (37-47) 11/14/22 15:27 Hgb O2 Saturation 97.5 % (95-100) 11/14/22 15:27 Carboxyhemoglobin 1.5 %THgb (0.4-20.1) 11/14/22 15:27 Methemoglobin 0.8 % (0.4-1.5) 11/14/22 15:27 Total Hemoglobin 12.7 g/dL (12-16) 11/14/22 15:27 Sodium 135.0 mmol/L (131-143) 11/14/22 15:27 Potassium 4.0 mmol/L (3.5-5.0) 11/14/22 15:27 Glucose 98.0 mg/dL (70-115) 11/14/22 15:27 Ionized Calcium 1.2 mmol/L (1.1-1.4) 11/14/22 15:27 O2 Delivery Device Vent 11/14/22 15:27 FiO2 30.0 % 11/14/22 15:27 Tidal Volume 0.45 11/14/22 15:27 PEEP 5.0 cmH20 11/14/22 15:27 Barman ID Cak 11/14/22 15:27 Sodium 144 mmol/L (136-145) 11/15/22 03:22 Potassium 4.3 mmol/L (3.5-5.1) 11/15/22 03:22 Chloride 110 mmol/L (98-107) H 11/15/22 03:22 Carbon Dioxide 23 mmol/L (22-29) 11/15/22 03:22 Anion Gap 15.3 (5-19) 11/15/22 03:22 BUN 12 mg/dL (6-20) 11/15/22 03:22 Creatinine 0.8 mg/dL (0.5-0.9) 11/15/22 03:22 GFR Calculation 83.7 mL/min (90-130) L 11/15/22 03:22 Glucose 78 mg/dL (65-115) 11/15/22 03:22 Estimat Average Glucose 80 11/15/22 03:22 Hemoglobin A1c 4.4 % (4.0-6.0) 11/15/22 03:22 Calculated Osmolality 297 mOsm/kg (285-295) H 11/15/22 03:22 Lactic Acid 0.7 mmol/L (0.5-2.2) 11/15/22 03:22 Lactic Acid (Sepsis) 1.5 mmol/L (0.5-2.2) 11/14/22 14:14 Calcium 8.1 mg/dL (8.5-10.5) L 11/15/22 03:22 Phosphorus 5.4 mg/dL (2.5-4.5) H 11/15/22 03:22 Magnesium 2.5 mg/dL (1.7-2.3) H 11/15/22 03:22 Iron 102 ug/dL (37-145) 11/14/22 11:50 TIBC 556 mcg/dl 11/14/22 11:50 % Saturation 18.3 % (20-50) L 11/14/22 11:50 Unsat Iron Binding 454 ug/dL (112-347) H 11/14/22 11:50 Total Bilirubin 0.5 mg/dL (0.15-1.2) 11/15/22 03:22 AST 102 U/L (0-32) H 11/15/22 03:22 ALT 103 U/L (0-33) H 11/15/22 03:22 Alkaline Phosphatase 73 U/L (35-105) 11/15/22 03:22 Ammonia 48 umol/L (11-51) 11/14/22 13:30 Creatine Kinase 4053 U/L (26-192) H* D 11/15/22 03:22 CK-MB (CK-2) 10.5 ng/mL (0-5.34) H 11/15/22 03:22 CK-MB (CK-2) Rel Index 0.2 % (0.0-10.4) 11/15/22 03:22 Troponin T Gen 5 ng/L 188 ng/L (0-10) H* 11/15/22 03:22 Troponin T Baseline 6 ng/L (0-10) 11/14/22 11:50 Troponin T 120 Minute 149.6 ng/L (0-10) H 11/14/22 13:30 Delta Troponin T 143.6 ABS# (0-10) H* 11/14/22 13:30 Troponin T Hi Sens 6Hr 356.3 ng/L (0-10) H 11/14/22 17:53 Troponin T Hi Sens 6Hr Delta 350.3 ng/L (0-12) H* 11/14/22 17:53 Total Protein 6.3 g/dL (6.6-8.7) L 11/15/22 03:22 Albumin 3.5 g/dL (3.5-5.2) 11/15/22 03:22 Globulin 2.8 g/dL (1.3-4.6) 11/15/22 03:22 Triglycerides 90 mg/dL (0-150) 11/15/22 03:22 Cholesterol 133 mg/dL (0-200) 11/15/22 03:22 LDL Cholesterol, Calc 81 mg/dL (50-129) 11/15/22 03:22 HDL Cholesterol 34 mg/dL (60-100) L 11/15/22 03:22 LDL/HDL Ratio 2.38 RATIO (0.00-3.22) 11/15/22 03:22 Cholesterol/HDL Ratio 3.91 mg/dL (0.0-4.40) 11/15/22 03:22 Lipase 30 U/L (13-60) 11/14/22 11:50 Vitamin B12 726 pg/mL (232-1245) 11/14/22 11:50 Folate 19.5 ng/mL (4.8-37.3) 11/14/22 11:50 Procalcitonin 0.18 ng/mL (0-0.5) 11/15/22 03:22 TSH 0.71 uIU/mL (0.27-4.20) 11/14/22 15:35 HCG, Qual Negative (Negative) 11/14/22 11:50 Urine Color Yellow (Yellow) 11/14/22 13:04 Urine Appearance Clear (CLEAR) 11/14/22 13:04 Urine pH 5 (5-7) 11/14/22 13:04 Ur Specific [place] 1.025 (1.005-1.030) 11/14/22 13:04 Urine Protein Trace (Negative) 11/14/22 13:04 Urine Glucose (UA) Norm (Normal) 11/14/22 13:04 Urine Ketones 1+ (Negative) H 11/14/22 13:04 Urine Blood 3+ (Negative) H 11/14/22 13:04 Urine Nitrate Negative (Negative) 11/14/22 13:04 Urine Bilirubin Neg (Negative) 11/14/22 13:04 Urine Urobilinogen Norm mg/dL (Negative) 11/14/22 13:04 Ur Leukocyte Esterase Negative (Negative) 11/14/22 13:04 Urine RBC Rare /hpf (0-2) 11/14/22 13:04 Urine WBC Rare /hpf (0-5) 11/14/22 13:04 Ur Squamous Epith Cells Rare /hpf (0-5) 11/14/22 13:04 Amorphous Sediment Not Reportable 11/14/22 13:04 Urine Bacteria Trace /hpf (NONE) 11/14/22 13:04 Salicylates < 0.3 mg/dL (3-10) L 11/14/22 11:50 Urine Opiates Screen Negative ng/mL (Negative) 11/14/22 13:04 Acetaminophen < 5.0 ug/mL (10-30) L 11/14/22 11:50 Ur Barbiturates Screen Negative ng/mL (Negative) 11/14/22 13:04 Ur Phencyclidine Scrn Negative ng/mL (Negative) 11/14/22 13:04 Ur Amphetamines Screen Positive ng/mL (Negative) H 11/14/22 13:04 U Benzodiazepines Scrn Negative ng/mL (Negative) 11/14/22 13:04 Urine Cocaine Screen Negative ng/mL (Negative) 11/14/22 13:04 U Marijuana (THC) Screen Positive ng/mL (Negative) H 11/14/22 13:04 Ethyl Alcohol < 10 mg/dL (0-10) 11/14/22 11:50 Hepatitis A IgM Ab Non-reactive (Nonreactive) 11/14/22 11:50 Hep Bs Antigen Non-reactive (Nonreactive) 11/14/22 11:50 Hep Bs Antibody 42.5 (11.5-1000) 11/14/22 11:50 Hep B Core Total Ab Non-reactive (Nonreactive) 11/14/22 11:50 Hepatitis C Antibody Reactive (Nonreactive) H 11/14/22 11:50 HIV 1&2 Ab & HIV 1 Ag Non-reactive (Non-Reactiv) 11/14/22 11:50 HIV 1&2 Antibody Non-reactive (Non-Reactiv) 11/14/22 11:50 Micro: Microbiology 11/14/22 16:00 Bacterial Antigens - Final Urine Kidney 11/14/22 17:53 Blood Culture - Preliminary Blood SPECIMEN COLLECTED 11/14/22 16:54 Blood Culture - Preliminary Blood SPECIMEN COLLECTED 11/14/22 16:00 Legionella Urinary Antigen - Final Unknown Source Echo: My impression: Normal LV size with a diminished ejection fraction of 30 to 35%. ?Diffuse hypokinesia of the LV apex may suggest a Takotsubo ?syndrome ?Trace of mitral and tricuspid regurgitation ?No intracardiac masses ?No pericardial effusion ?No similar previous studies are available for comparison EKG 1: My Interpretation: Normal sinus rhythm with a T inversions in lead I and aVL. The QTc was 446. Normal IL and QRS duration. A&P Assessment and plan (1) Elevated troponin: Elevated troponin T and abnormal EKG, may suggest a non-ST elevation myocardial infarction. The echocardiographic appearance may suggest a Takotsubo syndrome. Patient seems to be stable clinically. No hemodynamic compromise. Patient is on a heparin drip. This may be continued. (2) Syncope and collapse: Most likely from the seizure disorder. Stability of her cardiac arrhythmia cannot be excluded. So far she has no significant arrhythmias on the monitor. (3) Cardiomyopathy: The etiology is unclear. Patient requires a cardiac catheterization to further evaluate the coronary status. Patient may be started on a low dose of beta-sabi and an DANIEL inhibitor. Hold off on Plavix for the time being (4) Alcohol abuse: Patient is strongly advised to quit drinking (5) Methamphetamine abuse: Cardiovascular implications were discussed. Strongly advised to quit. (6) Hepatitis C: No specific symptoms at this point. Plan Discussed with the patient about the cardiac catheterization. Possible risk and benefits were discussed. The risk of bleeding, hematoma, vascular injury, myocardial infarction, myocardial perforation, malignant cardiac arrhythmias ,CVA, renal failure and other concomitant complications were explained in detail. Patient understood this well and consented to proceed. Based on the clinical progress and the angiogram findings, further recommendations will be made. Thank you for the opportunity for this patient make these recommendations Consult Attestations Medical Necessity Statement: Patient requires continued hospital stay for close monitoring and further management Coding Level of Care Code Acute Code for Chg Fwd Diagnoses Elevated troponin R77.8 Syncope and collapse R55 Cardiomyopathy I42.9 Alcohol abuse F10.10 Methamphetamine abuse F15.10 Hepatitis C B19.20
--- NOTE | 2022-11-15 11:04 | PC.NURSE ---
remains restless and agitated using foul language .. Dr murphy here exam pt at this time... possible for angiogram today made npo at this time...
--- NOTE | 2022-11-15 13:09 | PC.NURSE ---
significant other and sister in room with baby ,, took soda into room reminded pt that she not eat or drink anything awaiting test pt looked at me and laughed .. stating and why after conversation about aspiration risk she looked at me and laughed ask other to please take soda outside and pt stated he doesnt have to take his damn pepsi out of here... refused at this time
--- NOTE | 2022-11-15 14:55 | PC.NURSE ---
Family brought purse and personal belongings into pt room and closed curtain behind them.
--- NOTE | 2022-11-15 15:12 | PC.NURSE ---
to labor economics professor at this time
--- NOTE | 2022-11-15 15:51 | PC.NURSE ---
back from lift slab operator unable to do anesthesia not npo long enough
[2022-11-15] MEDS: metoprolol tartrate 25 mg Tablet 12.5 MG PO (19:45)
[2022-11-15 20:45] LABS: Anion Gap 10.9 (5-19); Blood Urea Nitrogen 7 mg/dL (6-20); Calcium 8.1 mg/dL (8.5-10.5); Carbon Dioxide 29 mmol/L (22-29); Chloride 104 mmol/L (98-107); Creatinine Clr Calc Pharmacy 120.3693; Glomerular Filtration Rate 97.6 mL/min (90-130); Glucose 101 mg/dL (65-115); Osmolality Calculated 288 mOsm/kg (285-295); Potassium 3.9 mmol/L (3.5-5.1); Sodium 140 mmol/L (136-145)
[2022-11-15] MEDS: enoxaparin 80 mg/0.8 mL Syringe SUBCUT (20:46)
--- NOTE | 2022-11-15 21:29 | PC.NURSE ---
Family (significant other and children) arrived to the unit and visited for approximately 1 hour. Patient remains alert, oriented, and pleasant. Engaged in care, accepting of education regarding medications, monitors, and procedures.
[2022-11-16] VITALS (38 sets, daily range): BP systolic 107–127; BP diastolic 66–86; PULSE 56–81; RESP 12–22; TEMP 36.3–36.7; O2SAT 95; BMI 30.9
--- NOTE | 2022-11-16 01:09 | PC.NURSE ---
Patient made NPO at midnight for scheduled procedure.
--- NOTE | 2022-11-16 03:24 | PC.NURSE ---
0310: Patient requested a cup of ice and soda. Explained she was NPO for procedure. Also reinforced procedure could be canceled due to PO intake. Patient verbalized understanding, but continued to demand a drink. Patient provided with drink, charge nurse notified.
[2022-11-16 04:00] LABS: Basophils % 0.7 %; Eosinophils # 0.1 10^3/uL (0.0-0.8); Eosinophils % 2.6 %; Hematocrit 32.9 % (37.0-47.0); Hemoglobin 10.5 g/dL (11.5-15.3); Lymphocytes # 2.2 10^3/uL (0.8-4.8); Lymphocytes % 50.7 %; Mean Corpuscular HGB Conc 31.9 g/dL (30.0-36.0); Mean Corpuscular Hemoglobin 27.1 pg (28.0-34.0); Mean Platelet Volume 11.2 fL (7.4-10.4); Monocytes # 0.3 10^3/uL (0.2-0.9); Neutrophils # 1.71 10^3/uL (1.8-7.7); Neutrophils % 39.8 %; Nucleated Red Blood Cells % 0 %; Platelet Count 144 10^3/cmm (130-400); Red Blood Count 3.87 10^6/uL (4.1-5.3); Red Cell Distribution Width 13.8 % (12.1-15.1); White Blood Count 4.3 10^3/uL (4.0-10.0)
[2022-11-16 04:29] LABS: Alanine Aminotransferase 92 U/L (0-33); Albumin Level 3.2 g/dL (3.5-5.2); Alkaline Phosphatase 61 U/L (35-105); Anion Gap 10.6 (5-19); Aspartate Amino Transferase 104 U/L (0-32); Blood Urea Nitrogen 7 mg/dL (6-20); Calcium 8.3 mg/dL (8.5-10.5); Carbon Dioxide 30 mmol/L (22-29); Chloride 104 mmol/L (98-107); Globulin 2.6 g/dL (1.3-4.6); Glomerular Filtration Rate 83.7 mL/min (90-130); Glucose 78 mg/dL (65-115); Osmolality Calculated 289 mOsm/kg (285-295); Potassium 3.6 mmol/L (3.5-5.1); Sodium 141 mmol/L (136-145); Total Bilirubin 0.3 mg/dL (0.15-1.2); Total Protein 5.8 g/dL (6.6-8.7); Uric Acid 3.6 mg/dL (2.4-5.7)
[2022-11-16 04:55] LABS: Creatine Phosphokinase 4108 U/L (26-192)
[2022-11-16 05:25] LABS: CKMB 6.6 ng/mL (0-5.34)
[2022-11-16 05:29] LABS: CKMB Relative Index 0.1 % (0.0-10.4)
[2022-11-16] MEDS: meropenem 1,000 MG in sodium chloride 0.9% (plus) 50 ML 100 MG IV (06:23)
--- NOTE | 2022-11-16 08:23 | PM.PN ---
Subjective Subjective: Repeat echocardiogram was done. Patient continues to have the wall motion abnormalities with a diminished ejection fraction of 35%. Has intermittent agitations. Denies any chest pain. No unusual shortness of breath. No fever or chills. Medications: Medication Review Details: Current Medications Acetaminophen (Acetaminophen 325 Mg Tablet) 650 mg PO Q8H PRN PRN Reason: Mild/Mod Pain Or Temp >/= 101 Last Admin: 11/15/22 08:44 Dose: 650 mg Aspirin (Aspirin 81 Mg Ec Tablet) 81 mg PO DAILY HALINA Bisacodyl (Bisacodyl 5 Mg Tablet) 10 mg PO DAILY PRN; Protocol PRN Reason: Constipation (see protocol) Enoxaparin Sodium (Enoxaparin 80 Mg/0.8 Ml Syringe) 80 mg SUBCUT Q12H [facility] Last Admin: 11/15/22 20:46 Dose: 80 mg Heparin Sodium (Porcine) (Heparin 5,000 Unit/Ml Inj 1 Ml) 0 unit IV PRN PRN; Protocol PRN Reason: Heparin weight-base protocol Last Admin: 11/14/22 16:40 Dose: 4,100 unit Meropenem 1,000 mg/ Sodium (Chloride) 50 mls @ 100 mls/hr IV Q8H HALINA; Protocol Last Infusion: 11/16/22 07:19 Dose: Infused Sodium Bicarbonate 100 meq/ (Sodium Chloride) 1,100 mls @ 100 mls/hr IV .Q11H HALINA Last Admin: 11/16/22 07:53 Dose: 100 mls/hr Lactulose (Lactulose Oral Liq 20 Gm/30 Ml Udc) 10 gm PO DAILY PRN; Protocol PRN Reason: Constipation (see protocol) Magnesium Hydroxide (Magnesium Hydroxide 30 Ml Udc) 30 ml PO DAILY PRN; Protocol PRN Reason: Constipation (see protocol) Methadone HCl (Methadone 10 Mg Tablet) 130 mg PO DAILY [facility] Metoprolol Tartrate (Metoprolol Tartrate 25 Mg Tablet) 12.5 mg PO BID [facility] Last Admin: 11/15/22 19:45 Dose: 12.5 mg Ondansetron HCl (Ondansetron 2 Mg/Ml Sdv 2 Ml) 4 mg IVP Q8H PRN PRN Reason: vomiting, or N/V if npo Last Admin: 11/15/22 08:16 Dose: 4 mg Pantoprazole Sodium (Pantoprazole Dr 40 Mg Tablet) 40 mg PO DAILY [facility] Last Admin: 11/15/22 08:38 Dose: 40 mg Vitals/I&O/Wt Last Vital Signs Temp 97.4 F L 11/16/22 03:00 Pulse 69 11/16/22 06:00 Resp 15 11/16/22 06:00 BP 115/68 11/16/22 06:00 Pulse Ox 95 11/16/22 01:00 O2 Del Method 11/16/22 01:00 FiO2 24 11/15/22 18:00 11/15/22 11/16/22 11/16/22 22:59 06:59 14:59 Intake Total 1633.75 / 2454.00 300 / 2754.00 50.683 / 50.683 Balance 1633.75 / 2454.00 300 / 2754.00 50.683 / 50.683 Weight last 48 hrs Weight 180 lb Weight 180 lb Physical Exam Narrative: GENERAL: The patient is alert and oriented times three. Not in any acute distress. HEENT: No significant pallor, icterus or lymphadenopathy.Oral cavity: There are no mucous membrane lesions. NECK: Trachea appears to be central. No masses noted. No JVD or thyromegaly appreciated. RESPIRATORY: Chest is symmetrical. No intercostals muscle retraction or any accessory muscle activation. There is no chest wall tenderness. Breath sounds are heard bilaterally. No rales or rhonchi heard. No evidence of any consolidation. BREASTS: Deferred. HEART: The heart sounds are normal. No S3 or S4. No significant murmurs. No pericardial rub ABDOMEN: No vessel pulsations or distention. No tenderness. No organomegaly appreciated. Bowel sounds are normally heard. : Deferred. RECTAL: Deferred. LYMPHATIC: No lymphadenopathy noted in the neck. EXTREMITIES: No edema or cyanosis. No clubbing. MUSCULOSKELETAL: No acute joint deformities or swelling SKIN: There are no significant rashes or ecchymosis NEUROPSYCHIATRIC: The patient is alert and oriented x3. Appears to be in a good mood. No tremors or rigidity noted. Urinary Catheter Management: Carcamo: Cath Placed During This Visit: yes Reason for Continuing Indwelling Catheter: Accurate Measurement of Urinary Output in Critically Ill Patients Urinary Catheter Date of Insertion: 11/14/22 Urinary Catheter Time of Insertion: 13:00 Data 11/16/22 03:12 11/16/22 03:12 Other Labs: Laboratory Last Values WBC 4.3 10^3/uL (4.0-10.0) 11/16/22 03:12 RBC 3.87 10^6/uL (4.1-5.3) L 11/16/22 03:12 Hgb 10.5 g/dL (11.5-15.3) L 11/16/22 03:12 Hct 32.9 % (37.0-47.0) L 11/16/22 03:12 MCV 85.0 fl (81-99) 11/16/22 03:12 MCH 27.1 pg (28.0-34.0) L 11/16/22 03:12 MCHC 31.9 g/dL (30.0-36.0) 11/16/22 03:12 RDW 13.8 % (12.1-15.1) 11/16/22 03:12 Plt Count 144 10^3/cmm (130-400) 11/16/22 03:12 MPV 11.2 fL (7.4-10.4) H 11/16/22 03:12 Neut % (Auto) 39.8 % 11/16/22 03:12 Lymph % (Auto) 50.7 % 11/16/22 03:12 [place] % (Auto) 6.0 % 11/16/22 03:12 Eos % (Auto) 2.6 % 11/16/22 03:12 Baso % (Auto) 0.7 % 11/16/22 03:12 Neut # (Auto) 1.71 10^3/uL (1.8-7.7) L 11/16/22 03:12 Lymph # (Auto) 2.2 10^3/uL (0.8-4.8) 11/16/22 03:12 [place] # (Auto) 0.3 10^3/uL (0.2-0.9) 11/16/22 03:12 Eos # (Auto) 0.1 10^3/uL (0.0-0.8) 11/16/22 03:12 Baso # (Auto) 0.0 10^3/uL (0.0-0.1) 11/16/22 03:12 Nucleated RBC % (auto) 0 % 11/16/22 03:12 Nucleated RBCs # 0.0 /100WBC 11/16/22 03:12 PT 14.60 SECONDS (12.1-14.9) 11/15/22 03:22 INR 1.11 (0.8-1.2) 11/15/22 03:22 APTT 86.2 SECONDS (23.9-36.7) H D 11/15/22 09:06 Specimen Type Arterial 11/14/22 15:27 Sample Site Radial, left 11/14/22 15:27 ABG pH 7.34 (7.35-7.45) L 11/14/22 15:27 ABG pCO2 42.7 mmHg (35-45) 11/14/22 15: ABG pO2 140.0 mmHg (80.0-100.0) H 11/14/22 15: ABG HCO3 22.7 mmol/L (22-26) 11/14/22 15: ABG O2 Saturation 99.8 11/14/22 15: ABG Base Excess -3.1 mmol/L (-2.0-2.0) L 11/14/22 15:27 Johan Test Pos 11/14/22 15:27 A-a O2 Gradient 2.8 mmHg (5-10) L 11/14/22 15:27 Hematocrit 38.9 % (37-47) 11/14/22 15:27 Hgb O2 Saturation 97.5 % (95-100) 11/14/22 15:27 Carboxyhemoglobin 1.5 %THgb (0.4-20.1) 11/14/22 15:27 Methemoglobin 0.8 % (0.4-1.5) 11/14/22 15:27 Total Hemoglobin 12.7 g/dL (12-16) 11/14/22 15:27 Sodium 135.0 mmol/L (131-143) 11/14/22 15:27 Potassium 4.0 mmol/L (3.5-5.0) 11/14/22 15:27 Glucose 98.0 mg/dL (70-115) 11/14/22 15:27 Ionized Calcium 1.2 mmol/L (1.1-1.4) 11/14/22 15:27 O2 Delivery Device Vent 11/14/22 15:27 FiO2 30.0 % 11/14/22 15:27 Tidal Volume 0.45 11/14/22 15:27 PEEP 5.0 cmH20 11/14/22 15:27 Databases Computer Consultant ID Cak 11/14/22 15:27 Sodium 141 mmol/L (136-145) 11/16/22 03:12 Potassium 3.6 mmol/L (3.5-5.1) 11/16/22 03:12 Chloride 104 mmol/L (98-107) 11/16/22 03:12 Carbon Dioxide 30 mmol/L (22-29) H 11/16/22 03:12 Anion Gap 10.6 (5-19) 11/16/22 03:12 BUN 7 mg/dL (6-20) 11/16/22 03:12 Creatinine 0.8 mg/dL (0.5-0.9) 11/16/22 03:12 GFR Calculation 83.7 mL/min (90-130) L 11/16/22 03:12 Glucose 78 mg/dL (65-115) 11/16/22 03:12 Estimat Average Glucose 80 11/15/22 03:22 Hemoglobin A1c 4.4 % (4.0-6.0) 11/15/22 03:22 Calculated Osmolality 289 mOsm/kg (285-295) 11/16/22 03:12 Lactic Acid 0.7 mmol/L (0.5-2.2) 11/15/22 03:22 Lactic Acid (Sepsis) 1.5 mmol/L (0.5-2.2) 11/14/22 14:14 Uric Acid 3.6 mg/dL (2.4-5.7) 11/16/22 03:12 Calcium 8.3 mg/dL (8.5-10.5) L 11/16/22 03:12 Phosphorus 3.0 mg/dL (2.5-4.5) 11/16/22 03:12 Magnesium 2.0 mg/dL (1.7-2.3) 11/16/22 03:12 Iron 102 ug/dL (37-145) 11/14/22 11:50 TIBC 556 mcg/dl 11/14/22 11:50 % Saturation 18.3 % (20-50) L 11/14/22 11:50 Unsat Iron Binding 454 ug/dL (112-347) H 11/14/22 11:50 Total Bilirubin 0.3 mg/dL (0.15-1.2) 11/16/22 03:12 AST 104 U/L (0-32) H 11/16/22 03:12 ALT 92 U/L (0-33) H 11/16/22 03:12 Alkaline Phosphatase 61 U/L (35-105) 11/16/22 03:12 Ammonia 48 umol/L (11-51) 11/14/22 13:30 Creatine Kinase 4108 U/L (26-192) H* 11/16/22 03:12 CK-MB (CK-2) 6.6 ng/mL (0-5.34) H 11/16/22 03:12 CK-MB (CK-2) Rel Index 0.1 % (0.0-10.4) 11/16/22 03:12 Troponin T Gen 5 ng/L 188 ng/L (0-10) H* 11/15/22 03:22 Troponin T Baseline 6 ng/L (0-10) 11/14/22 11:50 Troponin T 120 Minute 149.6 ng/L (0-10) H 11/14/22 13:30 Delta Troponin T 143.6 ABS# (0-10) H* 11/14/22 13:30 Troponin T Hi Sens 6Hr 356.3 ng/L (0-10) H 11/14/22 17:53 Troponin T Hi Sens 6Hr Delta 350.3 ng/L (0-12) H* 11/14/22 17:53 Total Protein 5.8 g/dL (6.6-8.7) L 11/16/22 03:12 Albumin 3.2 g/dL (3.5-5.2) L 11/16/22 03:12 Globulin 2.6 g/dL (1.3-4.6) 11/16/22 03:12 Triglycerides 90 mg/dL (0-150) 11/15/22 03:22 Cholesterol 133 mg/dL (0-200) 11/15/22 03:22 LDL Cholesterol, Calc 81 mg/dL (50-129) 11/15/22 03:22 HDL Cholesterol 34 mg/dL (60-100) L 11/15/22 03:22 LDL/HDL Ratio 2.38 RATIO (0.00-3.22) 11/15/22 03:22 Cholesterol/HDL Ratio 3.91 mg/dL (0.0-4.40) 11/15/22 03:22 Lipase 30 U/L (13-60) 11/14/22 11:50 Vitamin B12 726 pg/mL (232-1245) 11/14/22 11:50 Folate 19.5 ng/mL (4.8-37.3) 11/14/22 11:50 Procalcitonin 0.18 ng/mL (0-0.5) 11/15/22 03:22 TSH 0.71 uIU/mL (0.27-4.20) 11/14/22 15:35 HCG, Qual Negative (Negative) 11/14/22 11:50 Urine Color Yellow (Yellow) 11/14/22 13:04 Urine Appearance Clear (CLEAR) 11/14/22 13:04 Urine pH 5 (5-7) 11/14/22 13:04 Ur Specific [place] 1.025 (1.005-1.030) 11/14/22 13:04 Urine Protein Trace (Negative) 11/14/22 13:04 Urine Glucose (UA) Norm (Normal) 11/14/22 13:04 Urine Ketones 1+ (Negative) H 11/14/22 13:04 Urine Blood 3+ (Negative) H 11/14/22 13:04 Urine Nitrate Negative (Negative) 11/14/22 13:04 Urine Bilirubin Neg (Negative) 11/14/22 13:04 Urine Urobilinogen Norm mg/dL (Negative) 11/14/22 13:04 Ur Leukocyte Esterase Negative (Negative) 11/14/22 13:04 Urine RBC Rare /hpf (0-2) 11/14/22 13:04 Urine WBC Rare /hpf (0-5) 11/14/22 13:04 Ur Squamous Epith Cells Rare /hpf (0-5) 11/14/22 13:04 Amorphous Sediment Not Reportable 11/14/22 13:04 Urine Bacteria Trace /hpf (NONE) 11/14/22 13:04 Salicylates < 0.3 mg/dL (3-10) L 11/14/22 11:50 Urine Opiates Screen Negative ng/mL (Negative) 11/14/22 13:04 Acetaminophen < 5.0 ug/mL (10-30) L 11/14/22 11:50 Ur Barbiturates Screen Negative ng/mL (Negative) 11/14/22 13:04 Ur Phencyclidine Scrn Negative ng/mL (Negative) 11/14/22 13:04 Ur Amphetamines Screen Positive ng/mL (Negative) H 11/14/22 13:04 U Benzodiazepines Scrn Negative ng/mL (Negative) 11/14/22 13:04 Urine Cocaine Screen Negative ng/mL (Negative) 11/14/22 13:04 U Marijuana (THC) Screen Positive ng/mL (Negative) H 11/14/22 13:04 Ethyl Alcohol < 10 mg/dL (0-10) 11/14/22 11:50 Hepatitis A IgM Ab Non-reactive (Nonreactive) 11/14/22 11:50 Hep Bs Antigen Non-reactive (Nonreactive) 11/14/22 11:50 Hep Bs Antibody 42.5 (11.5-1000) 11/14/22 11:50 Hep B Core Total Ab Non-reactive (Nonreactive) 11/14/22 11:50 Hepatitis C Antibody Reactive (Nonreactive) H 11/14/22 11:50 HIV 1&2 Ab & HIV 1 Ag Non-reactive (Non-Reactiv) 11/14/22 11:50 HIV 1&2 Antibody Non-reactive (Non-Reactiv) 11/14/22 11:50 Micro: Microbiology 11/14/22 17:53 Blood Culture - Preliminary Blood NEGATIVE TO DATE 11/14/22 16:54 Blood Culture - Preliminary Blood NEGATIVE TO DATE 11/14/22 11:50 Gram Stain - Final Sputum - Endotracheal Tube Aspirate Sputum Culture - Preliminary 11/14/22 16:00 MRSA Culture - Final Nose 11/14/22 16:00 Bacterial Antigens - Final Urine Kidney A&P Assessment and plan (1) Elevated troponin: Elevated troponin T and abnormal EKG, may suggest a non-ST elevation myocardial infarction. The echocardiographic appearance may suggest a Takotsubo syndrome. Patient seems to be stable clinically. No hemodynamic compromise. Patient is on a heparin drip. In view of the multiple wall motion normalities, coronary ischemia also is a strong consideration. (2) Syncope and collapse: Most likely from the seizure disorder. Stability of her cardiac arrhythmia cannot be excluded. So far she has no significant arrhythmias on the monitor. (3) Cardiomyopathy: The etiology is unclear. Patient requires a cardiac catheterization to further evaluate the coronary status. Patient may be started on a low dose of beta-sabi and an DANIEL inhibitor. Hold off on Plavix for the time being (4) Alcohol abuse: Patient is strongly advised to quit drinking (5) Methamphetamine abuse: Cardiovascular implications were discussed. Strongly advised to quit. (6) Hepatitis C: No specific symptoms at this point. Plan Discussed with the patient about the cardiac catheterization. Possible risk and benefits were discussed. The risk of bleeding, hematoma, vascular injury, myocardial infarction, myocardial perforation, malignant cardiac arrhythmias ,CVA, renal failure and other concomitant complications were explained in detail. Patient understood this well and consented to proceed. Based on the clinical progress and the angiogram findings, further recommendations will be made. Thank you for the opportunity for this patient make these recommendations In view of the patient's drug abuse and requirement of high doses of methadone/Ativan/Xanax for sedation I requested anesthesia to administer IV sedation during the procedure. Attestations Medical Necessity Statement*: Patient requires continued hospital stay for close monitoring and further management Coding Level of Care Code 94687 Diagnoses Elevated troponin R77.8 Syncope and collapse R55 Cardiomyopathy I42.9 Alcohol abuse F10.10 Methamphetamine abuse F15.10 Hepatitis C B19.20
--- NOTE | 2022-11-16 09:00 | PC.NURSE ---
resting with eyes closed left undisturbed
--- NOTE | 2022-11-16 09:26 | USCV_ITS ---
Kathy Retana Age: 32 Gender: F : 1990 Exam Date: 11/16/2022 11:57 Ordering Phys: Magdaleno Dickinson MD ([email or web address]) Technologist: ETTA Exam Location: [facility] [place] Indication: elevated trop BP: / HR: Rhythm: Sinus Technical Quality: Adequate MEASUREMENTS (Male / Female) Normal Values 2D ECHO LVOT Diameter 2.3 cm LA Diameter 2.8 cm M-MODE Aortic Annulus Diameter 2.6 cm LA Ao Ratio MM 1.1 MV E Point Septal Separation 0.6 cm FINDINGS Left Ventricle Moderate to severe hypokinesia of the mid and apical septum, anteroseptum and is somewhat dyskinetic mid and apical inferior wall segments. LV ejection fraction around 35%. Right Ventricle Normal right ventricular size and systolic function. Right Atrium Normal right atrial size. Left Atrium Left atrium is upper limits of normal size . Mitral Valve No gross abnormalities noted Aortic Valve No gross abnormalities noted Tricuspid Valve No gross abnormalities noted Pulmonic Valve Pulmonic valve not well visualized. Pericardium No pericardial effusion. Aorta Normal aortic annulus size. IVC Normal inferior vena cava. CONCLUSIONS Moderate to severe hypokinesia of the mid and apical septum, anteroseptum and is somewhat dyskinetic mid and apical inferior wall segments. LV ejection fraction around 35%. Left atrium is upper limits of normal size . Nol intracardiac masses. No pericardial effusion. Compared to the previous study on 11/14/2022, there may not be a significant change in the 2D findings. Dr Magdaleno Dickinson MD [facility] (Electronically Signed) Final Date: 16 November 2022 13:08 S
[2022-11-16] MEDS: enoxaparin 80 mg/0.8 mL Syringe SUBCUT (09:45)
[2022-11-16] MEDS: pantoprazole DR 40 mg Tablet PO (09:45)
[2022-11-16] MEDS: aspirin 81 mg EC Tablet PO (09:45)
[2022-11-16] MEDS: metoprolol tartrate 25 mg Tablet 12.5 MG PO (09:46)
[2022-11-16] MEDS: methadone 10 mg Tablet 130 MG PO (09:47)
--- NOTE | 2022-11-16 10:08 | PC.NURSE ---
pt am meds given with sip of water .. requested more explained to pt npo and no more to drink pt got out of bed and drank water from sink all doctors notified
[2022-11-16] MEDS: LORazepam 2 mg/mL INJ 1 mL IVP ×2 (10:33→12:40)
--- NOTE | 2022-11-16 11:01 | PC.NURSE ---
pt had episode of cursing and yell at staff and doctor Fra about this only hospital she couldnt have ice chip before procedure.. 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
--- NOTE | 2022-11-16 11:14 | PC.NURSE ---
pt resting at this time left undistrubed to keep pt calm until time for procedure at 2pm
--- NOTE | 2022-11-16 12:41 | PC.NURSE ---
pt requesting mor iv ativan doctor called and given at this time
[2022-11-16 12:47] LABS: Anion Gap 9.8 (5-19); Blood Urea Nitrogen 7 mg/dL (6-20); Calcium 8.1 mg/dL (8.5-10.5); Carbon Dioxide 31 mmol/L (22-29); Chloride 102 mmol/L (98-107); Glomerular Filtration Rate 116.6 mL/min (90-130); Glucose 75 mg/dL (65-115); Osmolality Calculated 285 mOsm/kg (285-295); Potassium 3.8 mmol/L (3.5-5.1); Sodium 139 mmol/L (136-145)
--- NOTE | 2022-11-16 14:01 | XACV_ITS ---
Exam Room: [facility] Ht: 163 cm Wt: 82 kg BSA: 1.95 m2 Gender: Female : 1990 Any Known Allergies: Other Exam Priority: Routine Procedure(s): Procedure Description: Diagnostic procedure Procedure Description: Left Heart Catheterization Procedure Description: Left ventriculography Procedure Description: Coronary Angiography Alok SALGADO; Diagnostic Cath Status: Urgent Diagnostic Findings * Left main is a medium caliber vessel with no significant stenotic lesions. * The left anterior descending artery is a medium caliber vessel which appears to wrap around the LV apex. No significant stenotic lesions were noted in the vessel. * The left circumflex artery is a medium caliber nondominant vessel with no significant stenotic lesions. * The right coronary artery is a medium caliber dominant vessel with no significant stenotic lesions. Conclusions 1. 32-year-old white female with a history of polydrug abuse, on a methadone program taking 130 mg of methadone per day along with high-dose Xanax, presents with an episode of syncope and seizure. She was found to have multiple wall motion normalities with a diffuse ejection fraction of 30 to 35% by echocardiogram. She had a markedly elevated troponin T. In view of her clinical presentation and the abnormal objective findings, in order to further evaluate her coronary status, a cardiac catheterization was recommended. Patient understood this well and consented to proceed. The IV sedation was administered during the procedure under the supervision of Dr. Luna. The findings are as follows. 2. No significant obstructive coronary artery disease. LV gram revealed severe hypokinesia of the mid and apical anterior wall and mid inferior wall regions. Mildly dilated LV cavity. LV ejection fraction of 30-35%. LVEDP of 30 mmHg. Recommendations * Patient may be discharged on GDMT. Diagnostic RX Recommendation: medical therapy and/or counseling LV EDP: 32 mmHg Left Ventriculography Findings: * The LV gram was performed in the SKY projection. The LV cavity appears to be mildly dilated. There was severe hypokinesia of the mid and apical anterior, mid inferior wall region. No filling defects are noted. The LV opacification was of suboptimal quality. No significant mitral valve prolapse or mitral regurgitation. LV ejection fraction around 30-35%. LVEDP of 32 mmHg. Pressures Phase:Rest AO : 139 / 104 ( 120 ) @ 4:35:00 PM / ( 125 ) @ 4:47:00 PM 144 / 100 ( 121 ) @ 4:47:00 PM LV : 142 / 21 / 32 @ 4:45:00 PM 146 / 16 / 29 @ 4:45:00 PM Valves Phase:DefaultPhase AV : 0.0 @ 3:58:11 PM AV Mean Gradient: 0.0 @ 3:58:11 PM 0.0 @ 3:58:11 PM Clinical Evaluation EBL: 5mL-10mL Procedural Details Procedure Consent Obtained. Procedure started. Pre-Procedure Time Out. Identified patient by full name and date of as verbalized by the patient/guarantor. Does the consent match the physician's order: Yes. Accurate & Complete Informed Consent: Yes. Inpatient/Outpatient History & Physical on Chart: Yes. If H&P is completed, is and addenduem needed: No; If yes, is the addendum complete: N/A. Visualize and Verify Site with Patient/Guarantor: N/A. Relevant Radiology Images available: Yes. Pre-op teaching completed and patient verbalized understanding. The risks, benefits, and alternatives of sedation and/or procedure were discussed by physician. The patient agrees to continue. [facility] Clinical Fraility Score: 5: Mildly Frail. Manager Specialty Indications: ACS > 24 hours. Chest Pain Symptom Assessment: Atypical Angina. Cardiovascular Instability: No. Correct patient, site and procedure confirmed by cath team. PERRLA. Strong, equal hand clinic physician director bilaterally. Lungs clear x 5 lobes. IV Site on Arrival: 18 gauge in the right anticubital. IV Fluids: 0.9% NaCl at KVO. 0 mL infused prior to label drier. Oxygen started at 2liters/min via nasal canula. right radial was prepped with chloroprep then draped in the usual sterile fashion. left brachial was prepped with chloroprep then draped in the usual sterile fashion. Baseline sample Acquired. HR: [address] Luna is present for procedure to manage sedation. Physician notified. Physician arrived. Equipment: 6F - Radial. Cardiac Cath Pack. ACIST Manifold Kit Model BT 2000. Heparinized Saline (2 units/mL), 1000 mL bag. Physician scrubbed in. Immediate Pre-Procedure Time Out. Correct Patient: Yes; Correct Procedure: Yes; Correct Site: Yes; Correct Patient Position: Yes; Correct Supplies: Yes; Dried Flammable Prep: Yes; Blood Products Available: N/A;. Lidocaine 1% infiltrated to the right radial. Arterial access obtained. Unable to advance guide wire. Needle out. Manual pressure held by physician. Arterial access obtained. A 5 belgian Jayme catheter in over wire. Multiple views taken of left coronary artery. Catheter out. A 5 belgian JR4 catheter in over wire. Multiple views taken of right coronary artery. Catheter out. A 5 belgian Angled Pig catheter in over wire. EDP Sample taken: LV Off; HR: 65 BPM; SpO2: 97%. EDP Sample taken: LV 142/21,32; HR: 72 BPM; SpO2: 97%. EDP Sample taken: LV 146/16,29; HR: 68 BPM; SpO2: 97%. LV gram performed in SKY @ 10 mL/second for a total of 30 mL. EDP Sample taken: LV Off; HR: 0 BPM; SpO2: 97%. Pullback taken: LV Off; AO (125); Mean: 0mmHg, Peak to Peak: 0mmHg, SEP: 11sec/min; HR: 47 BPM; SpO2: 97%. Catheter out. Physician scrubbed out. A TR Band was successful obtaining hemostatsis at the Right Radial artery insertion site. TR band placed. Hemostasis obtained. Post Procedure: Pulses reassessed and unchanged. PERRLA. Strong, equal hand clinic physician director bilaterally. No VTE prophylaxis required. Medication's Wasted: Lidocaine 1% = 1 mL. Medication's Wasted: Nitro = 49.5 mg. Medication's Wasted: Heparin = 1000 heparin. Total IV fluids: 387 mL. Contrast type used: Omnipaque 300 mgI/mL, 500 mL bottle. Post-op diagnosis: cardiomyopathy, high EDP. Complications: none. Estimated blood loss: 5mL-10mL. Responsiveness - Normal response to verbal stimuli; alert and oriented, PERRLA. Airway - Unaffected, no intervention required; spontaneous ventilation. Circulation: W/N/L, pulses unchanged. Nausea/Vomiting: No. Procedure completed. Patient transferred by bed to ICU. Vital chart was stopped. Access Site Site: Right Radial artery Sheath Size: 6 Fr Hemostasis Method: TR Band Hemostasis Success: Successful Procedure Medications Start: 3:08 PM Stop: 3:08 PM Medication: Versed Amount: 3 mg Route: I.V. Start: 3:15 PM Stop: 3:15 PM Medication: Fentanyl Amount: 50 mcg Route: I.V. Start: 3:18 PM Stop: 3:18 PM Medication: Versed Amount: 2 mg Route: I.V. Start: 3:18 PM Stop: 3:18 PM Medication: Fentanyl Amount: 50 mcg Route: I.V. Start: 3:22 PM Stop: 3:22 PM Medication: 0.9% Saline Amount: 250 ml Route: I.V. bolus Start: 3:25 PM Stop: 3:25 PM Medication: Versed Amount: 4 mg Route: I.V. Start: 3:25 PM Stop: 3:25 PM Medication: Fentanyl Amount: 100 mcg Route: I.V. Start: 3:27 PM Stop: 3:27 PM Medication: Verapamil Amount: 5 mg Route: I.A. Start: 3:28 PM Stop: 3:28 PM Medication: Nitrogylcerin Amount: 200 mcg Route: I.A. Start: 3:31 PM Stop: 3:31 PM Medication: Versed Amount: 4 mg Route: I.V. Start: 3:36 PM Stop: 3:36 PM Medication: Fentanyl Amount: 100 mcg Route: I.V. Start: 3:48 PM Stop: 3:48 PM Medication: Nitrogylcerin Amount: 100 mcg Route: I.A. I, the attending physician, have reviewed and verified all procedure medications. Yes, all medications given per verbal order History/Risk Factors Hypertension: Yes Dyslipidemia: No Peripheral Arterial Disease (PAD): No Myocardial Infarction (KS): No Obesity: No Renal Disease: No Tobacco Use: Current/Recent(w/in 1 year) Prior Interventions PCI: No CABG: No Valve Surgery: No Report Signatures Finalized by Dr Magdaleno Dickinson MD [facility] on 11/16/2022 08:54 PM
--- NOTE | 2022-11-16 15:03 | PC.NURSE ---
have explained at lenght the risk of not following rule after cath procdure and risk of bleeding , relates will cooperate but you may have to remind me , You know how i am ... has had explosive outbust of yelling and foul language for last 2 days, attempt to calm pt as to help her with medical care. 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
--- NOTE | 2022-11-16 15:03 | W.PM.OPSUD ---
Surgery/Procedure H&P Update DATE OF PROCEDURE: November 16, 2022 DATE H&P PERFORMED: 11/15/22 H&P UPDATE INFORMATION: I have reviewed H&P completed within last 30 days and Changes to prior documentation as noted here (She is currently sedated) CHANGES TO PREVIOUS DOCUMENTATION: Patient is sedated at this time with the Ativan. Dr. Luna will be performing the sedation while she is in the [employer]. PREOP DIAGNOSIS: Non-ST elevation myocardial infarction/atherosclerotic heart disease PRIMARY INDICATION FOR PROCEDURE: Non-ST relation myocardial infarction and cardiomyopathy PLANNED PROCEDURE: Left heart catheterization with left and right coronary angiogram and possible PCI
--- NOTE | 2022-11-16 15:08 | W.PM.OPSUD ---
Surgery/Procedure H&P Update DATE OF PROCEDURE: November 16, 2022 DATE H&P PERFORMED: 11/14/22 H&P UPDATE INFORMATION: I have reviewed H&P completed within last 30 days, I have examined patient prior to procedure and No changes to prior documentation PREOP DIAGNOSIS: Non-ST elevation myocardial infarction/cardiomyopathy PRIMARY INDICATION FOR PROCEDURE: Evaluate coronary arteries PLANNED PROCEDURE: Cath by Dr Dickinson, I will perform conscious sedation PATIENT REASSESSED PRIOR TO SEDATION, WITH NO CHANGE NOTED: Yes PHYSICAL EXAM: alert, oriented x 3, clear to auscultation bilaterally, regular rate & rhythm and operative site marked (right radial prepped and draped by cath team. Peripheral IV location noted) OTHER PERTINENT EXAM FINDINGS: upper dentures, has lower anterior teeth AIRWAY EVAL/ANESTHESIA PLAN: normal airway, ASA III, Monitored Anesthesia (under my guidance), Local Anesthesia (by cardiology), Risks, benefits & alternatives of sedation and/or procedure discussed and Patient agrees to continue as planned
--- NOTE | 2022-11-16 16:11 | PC.NURSE ---
Addendum entered by RAMON Webb RN 11/16/22 16:54: witness all meds return to pyxis Original Note: Pulled stock meds for Dr. Luna to administer, meds were not administered and returned to pyxis all witnessed by RAMON RN
--- NOTE | 2022-11-16 16:20 | PC.NURSE ---
back from mechanical laboratory technician resting at this time releasing air from right tr band q 5 to 10 min as tolerated remains calm at this time ... has cell phone and has talked to significant other ... monitor vs
--- NOTE | 2022-11-16 16:36 | PC.NURSE ---
skilled labor crew later brought vape back to room that pt had taken in bed to skilled labor with her
--- NOTE | 2022-11-16 17:10 | PC.NURSE ---
tr band to right wrist removed dressing placed
--- NOTE | 2022-11-16 18:14 | P.DS_ITS ---
Discharge Providers Date of Admission: 11/14/22 15:06 Date of Discharge: November 16, 2022 Attending Provider at Admission: Luis Martinez MD Attending Provider at Discharge: Janet Luna MD Consults: Dr. Dickinson with cardiology Diagnoses at Discharge Discharge Diagnosis (1) Seizure: Status: Acute (2) Syncope and collapse: Status: Acute (3) Respiratory failure: Status: Resolved (4) Elevated troponin: Status: Acute (5) Cardiomyopathy: Status: Acute (6) Takotsubo cardiomyopathy: Status: Acute (7) Rhabdomyolysis: Status: Acute (8) Methadone use: Status: Chronic (9) Hepatitis C: Status: Chronic Permanent problem details: not treated Reason for Visit Reason for Visit: unresponsive/seizures Brief History: Mrs. Retana is a 32-year-old who presented after a seizure and syncopal episode. She was unresponsive on arrival and intubated in the emergency room for airway protection. For details please see history and physical exam. She was found to have significant lactic acid elevation, hyperammonemia, both likely related to seizure activity. She also had elevated troponins with 2-hour delta of 143.6 and a 6-hour delta of 350.3. There were other laboratory abnormalities and findings. Patient was admitted to the ICU. Hospital Course Hospital Course Patient was initially maintained on ventilator. Echocardiogram was done and showed an ejection fraction of 35% and the morphology likely consistent with Takotsubo cardiomyopathy. She was extubated overnight. And getting history from her she reported a family history of a maternal grandmother dying in her early 50s from a heart attack. Ms. Retana received heparin drip and cardiology was consulted. Decision was made to take her for cardiac catheterization. This revealed normal coronary arteries and was also consistent with Takotsubo syndrome. We are going to initiate aspirin, carvedilol, spironolactone and lisinopril and have her follow-up with cardiology. In the interim she will need to follow-up with her primary care provider to get renal function checked and monitor response to treatment. She was noted to have rhabdomyolysis with CK initially at 304 up to around 4000. She received fluids while here. CK was still several thousand at the time of discharge but renal function was stable with BUN and creatinine at 7/0.6. Mrs. Retana is known to have hepatitis C without prior treatment. She had some mild transaminitis. She does smoke THC and had a positive amphetamine on drug screen though denied use once able to provide history. She did not have recall of events prior to seizure, including how she got to the place where she was found. As soon as patient was awake and off the ventilator she wanted to go home. Explained to her the cardiac abnormalities that were identified and she did agree to stay for further treatment and work-up. It was difficult for her to be in the hospital and at times she was not fully cooperative with recommendations or would get upset. Cardiac catheterization was delayed once definitively and almost delayed a second time due to patient not complying with recommendations prior to procedure. She was cooperative with me most of the time after taking time to discuss concerns. Ultimately the catheterization was done under conscious sedation performed with me in the [employer] Machine Operator. She is normally on 130 mg of methadone a day. She received her methadone the day of cardiac catheterization. Periprocedure she had 13 mg of Versed and 300 mg of fentanyl and continue to require frequent reminders not to move and was able to talk though sleepy postprocedure. She was monitored closely for several hours after procedure. She had some bruising at the right radial site that stabilized. She was given strict instructions both written and verbally on several occasions not to use her arm excessively and not to lift more than 5 pounds for the next 48 hours. I do have concerns about her remembering being compliant but she expressed understanding. Home medications were reviewed with her including reasons for the medications and potential side effects and need to have blood work done. We also discussed the cost. I encouraged her to stay hydrated but not drink excessive amounts of fluid. Patient was awake and alert prior to discharge. She was able to participate in discharge education. She asked questions which were answered and written educational material was provided. Her radial site was intact. Central venous line was removed from the right groin earlier in the day. She had received instruction on care of that as well. I worry about Mrs. Retana's future compliance with recommended medications and monitoring as well as follow-up but it was made clear to her on several occasions that the cardiac issues she presented with could very well have been life-threatening if somebody had not been at the scene with her. It is difficult to know if the cardiac abnormalities led to the seizure or vice versa at this time. She did not have further seizure activity throughout the hospital stay. A limited repeat echo was performed confirming continuation of similar EF at 35% on the day of discharge. Patient was told that some patients do recover fully with ap propriate management and follow-up though some do not. Physical Exam Urinary Catheter Management: Carcamo: Cath Placed During This Visit: yes Reason for Continuing Indwelling Catheter: Accurate Measurement of Urinary Output in Critically Ill Patients Urinary Catheter Date of Insertion: 11/14/22 Urinary Catheter Time of Insertion: 13:00 Discharge Data Studies Completed and Pending Completed Studies During Hospitalization Category Date Time Status CT abdomen pelvis wo con [id number] Stat Cat Scan 11/14/22 13:[address] cervical spin wo con* [id number] Stat Cat Scan 11/14/22 14:[address] facial bones wo con* [id number] Stat Cat Scan 11/14/22 11:[address] head wo con* [id number] Stat Cat Scan 11/14/22 11:[address] abdomen pelvis [CT angio chest w abd pel w Cat Scan 11/14/22 14:20 Completed con] Stat XR chest 1V portable [id number] Stat Exams 11/14/22 11:45 Completed XR chest 1V portable [id number] Stat Exams 11/14/22 13:12 Completed CV. echo complete* [id number] Stat Ultrasound 11/14/22 14:28 Completed CV. echo lmt wo/w con w color Routine Ultrasound 11/16/22 09:26 Completed Pending at discharge Category Date Time Status OPERATIONS RESEARCH DIRECTOR request for service Routine Exams 11/15/22 15:06 Ordered OPERATIONS RESEARCH DIRECTOR request for service Routine Exams 11/16/22 14:01 Ordered Blood Culture Stat Lab 11/14/22 17:53 Results Hepatitis C RNA Viral Load Qnt Routine Lab 11/14/22 16:51 Received Platelet Count Q2D Lab 11/18/22 04:00 Ordered Radiology Impressions Head CT 11/14/22 11:45 IMPRESSION: Negative head CT. Face CT 11/14/22 11:46 IMPRESSION: Negative facial bone CT. No fractures. Chest X-Ray 11/14/22 13:12 IMPRESSION: Properly positioned endotracheal tube and nasogastric tube. Better expansion of the lungs without lung opacities suspected on the exam of earlier today. Abdomen/Pelvis CT 11/14/22 13:25 IMPRESSION: 1. No acute abdominal or pelvic abnormalities are identified. 2. Study is compromised by significant artifact from external wires and catheters. 3. Nasogastric tube in good position with the tip directed towards the stomach antrum. 4. No renal obstruction. 5. No free air or free fluid. Chest/Abdomen/Pelvis CT 11/14/22 14:20 IMPRESSION: 1. No pulmonary embolism. 2. Mild LEFT heart enlargement. 3. No RIGHT heart strain. 4. No pneumothorax or pulmonary contusion. 5. Nasogastric and endotracheal tubes are placed in good position. 6. No GI tract obstruction. There is high density contrast in the stomach that was not present on the prior study. No oral contrast was given by radiology through the nasogastric tube. After speaking to Dr. Sylvester this was due to medication given via the NG tube within the emergency department. Cervical Spine CT 11/14/22 14:59 IMPRESSION: Normal cervical spine. Laboratory Results WBC 4.3 10^3/uL (4.0-10.0) 11/16/22 03:12 RBC 3.87 10^6/uL (4.1-5.3) L 11/16/22 03:12 Hgb 10.5 g/dL (11.5-15.3) L 11/16/22 03:12 Hct 32.9 % (37.0-47.0) L 11/16/22 03:12 MCV 85.0 fl (81-99) 11/16/22 03:12 MCH 27.1 pg (28.0-34.0) L 11/16/22 03:12 MCHC 31.9 g/dL (30.0-36.0) 11/16/22 03:12 RDW 13.8 % (12.1-15.1) 11/16/22 03:12 Plt Count 144 10^3/cmm (130-400) 11/16/22 03:12 MPV 11.2 fL (7.4-10.4) H 11/16/22 03:12 Neut % (Auto) 39.8 % 11/16/22 03:12 Lymph % (Auto) 50.7 % 11/16/22 03:12 Carver % (Auto) 6.0 % 11/16/22 03:12 Eos % (Auto) 2.6 % 11/16/22 03:12 Baso % (Auto) 0.7 % 11/16/22 03:12 Neut # (Auto) 1.71 10^3/uL (1.8-7.7) L 11/16/22 03:12 Lymph # (Auto) 2.2 10^3/uL (0.8-4.8) 11/16/22 03:12 Carver # (Auto) 0.3 10^3/uL (0.2-0.9) 11/16/22 03:12 Eos # (Auto) 0.1 10^3/uL (0.0-0.8) 11/16/22 03:12 Baso # (Auto) 0.0 10^3/uL (0.0-0.1) 11/16/22 03:12 Nucleated RBC % (auto) 0 % 11/16/22 03:12 Nucleated RBCs # 0.0 /100WBC 11/16/22 03:12 PT 14.60 SECONDS (12.1-14.9) 11/15/22 03:22 INR 1.11 (0.8-1.2) 11/15/22 03:22 APTT 86.2 SECONDS (23.9-36.7) H D 11/15/22 09:06 Specimen Type Arterial 11/14/22 15:27 Sample Site Radial, left 11/14/22 15:27 ABG pH 7.34 (7.35-7.45) L 11/14/22 15:27 ABG pCO2 42.7 mmHg (35-45) 11/14/22 15:27 ABG pO2 140.0 mmHg (80.0-100.0) H 11/14/22 15:27 ABG HCO3 22.7 mmol/L (22-26) 11/14/22 15:27 ABG O2 Saturation 99.8 11/14/22 15:27 ABG Base Excess -3.1 mmol/L (-2.0-2.0) L 11/14/22 15:27 Johan Test Pos 11/14/22 15:27 A-a O2 Gradient 2.8 mmHg (5-10) L 11/14/22 15:27 Hematocrit 38.9 % (37-47) 11/14/22 15:27 Hgb O2 Saturation 97.5 % (95-100) 11/14/22 15:27 Carboxyhemoglobin 1.5 %THgb (0.4-20.1) 11/14/22 15:27 Methemoglobin 0.8 % (0.4-1.5) 11/14/22 15:27 Total Hemoglobin 12.7 g/dL (12-16) 11/14/22 15:27 Sodium 135.0 mmol/L (131-143) 11/14/22 15:27 Potassium 4.0 mmol/L (3.5-5.0) 11/14/22 15:27 Glucose 98.0 mg/dL (70-115) 11/14/22 15:27 Ionized Calcium 1.2 mmol/L (1.1-1.4) 11/14/22 15:27 O2 Delivery Device Vent 11/14/22 15:27 FiO2 30.0 % 11/14/22 15:27 Tidal Volume 0.45 11/14/22 15:27 PEEP 5.0 cmH20 11/14/22 15:27 Watch Technician ID Cak 11/14/22 15:27 Sodium 139 mmol/L (136-145) 11/16/22 12:10 Potassium 3.8 mmol/L (3.5-5.1) 11/16/22 12:10 Chloride 102 mmol/L (98-107) 11/16/22 12:10 Carbon Dioxide 31 mmol/L (22-29) H 11/16/22 12:10 Anion Gap 9.8 (5-19) 11/16/22 12:10 BUN 7 mg/dL (6-20) 11/16/22 12:10 Creatinine 0.6 mg/dL (0.5-0.9) 11/16/22 12:10 GFR Calculation 116.6 mL/min (90-130) 11/16/22 12:10 Glucose 75 mg/dL (65-115) 11/16/22 12:10 Estimat Average Glucose 80 11/15/22 03:22 Hemoglobin A1c 4.4 % (4.0-6.0) 11/15/22 03:22 Calculated Osmolality 285 mOsm/kg (285-295) 11/16/22 12:10 Lactic Acid 0.7 mmol/L (0.5-2.2) 11/15/22 03:22 Lactic Acid (Sepsis) 1.5 mmol/L (0.5-2.2) 11/14/22 14:14 Uric Acid 3.6 mg/dL (2.4-5.7) 11/16/22 03:12 Calcium 8.1 mg/dL (8.5-10.5) L 11/16/22 12:10 Phosphorus 3.0 mg/dL (2.5-4.5) 11/16/22 03:12 Magnesium 2.0 mg/dL (1.7-2.3) 11/16/22 03:12 Iron 102 ug/dL (37-145) 11/14/22 11:50 TIBC 556 mcg/dl 11/14/22 11:50 % Saturation 18.3 % (20-50) L 11/14/22 11:50 Unsat Iron Binding 454 ug/dL (112-347) H 11/14/22 11:50 Total Bilirubin 0.3 mg/dL (0.15-1.2) 11/16/22 03:12 AST 104 U/L (0-32) H 11/16/22 03:12 ALT 92 U/L (0-33) H 11/16/22 03:12 Alkaline Phosphatase 61 U/L (35-105) 11/16/22 03:12 Ammonia 48 umol/L (11-51) 11/14/22 13:30 Creatine Kinase 4108 U/L (26-192) H* 11/16/22 03:12 CK-MB (CK-2) 6.6 ng/mL (0-5.34) H 11/16/22 03:12 CK-MB (CK-2) Rel Index 0.1 % (0.0-10.4) 11/16/22 03:12 Troponin T Gen 5 ng/L 188 ng/L (0-10) H* 11/15/22 03:22 Troponin T Baseline 6 ng/L (0-10) 11/14/22 11:50 Troponin T 120 Minute 149.6 ng/L (0-10) H 11/14/22 13:30 Delta Troponin T 143.6 ABS# (0-10) H* 11/14/22 13:30 Troponin T Hi Sens 6Hr 356.3 ng/L (0-10) H 11/14/22 17:53 Troponin T Hi Sens 6Hr Delta 350.3 ng/L (0-12) H* 11/14/22 17:53 Total Protein 5.8 g/dL (6.6-8.7) L 11/16/22 03:12 Albumin 3.2 g/dL (3.5-5.2) L 11/16/22 03:12 Globulin 2.6 g/dL (1.3-4.6) 11/16/22 03:12 Triglycerides 90 mg/dL (0-150) 11/15/22 03:22 Cholesterol 133 mg/dL (0-200) 11/15/22 03:22 LDL Cholesterol, Calc 81 mg/dL (50-129) 11/15/22 03:22 HDL Cholesterol 34 mg/dL (60-100) L 11/15/22 03:22 LDL/HDL Ratio 2.38 RATIO (0.00-3.22) 11/15/22 03:22 Cholesterol/HDL Ratio 3.91 mg/dL (0.0-4.40) 11/15/22 03:22 Lipase 30 U/L (13-60) 11/14/22 11:50 Vitamin B12 726 pg/mL (232-1245) 11/14/22 11:50 Folate 19.5 ng/mL (4.8-37.3) 11/14/22 11:50 Procalcitonin 0.18 ng/mL (0-0.5) 11/15/22 03:22 TSH 0.71 uIU/mL (0.27-4.20) 11/14/22 15:35 HCG, Qual Negative (Negative) 11/14/22 11:50 Urine Color Yellow (Yellow) 11/14/22 13:04 Urine Appearance Clear (CLEAR) 11/14/22 13:04 Urine pH 5 (5-7) 11/14/22 13:04 Ur Specific [place] 1.025 (1.005-1.030) 11/14/22 13:04 Urine Protein Trace (Negative) 11/14/22 13:04 Urine Glucose (UA) Norm (Normal) 11/14/22 13:04 Urine Ketones 1+ (Negative) H 11/14/22 13:04 Urine Blood 3+ (Negative) H 11/14/22 13:04 Urine Nitrate Negative (Negative) 11/14/22 13:04 Urine Bilirubin Neg (Negative) 11/14/22 13:04 Urine Urobilinogen Norm mg/dL (Negative) 11/14/22 13:04 Ur Leukocyte Esterase Negative (Negative) 11/14/22 13:04 Urine RBC Rare /hpf (0-2) 11/14/22 13:04 Urine WBC Rare /hpf (0-5) 11/14/22 13:04 Ur Squamous Epith Cells Rare /hpf (0-5) 11/14/22 13:04 Amorphous Sediment Not Reportable 11/14/22 13:04 Urine Bacteria Trace /hpf (NONE) 11/14/22 13:04 Salicylates < 0.3 mg/dL (3-10) L 11/14/22 11:50 Urine Opiates Screen Negative ng/mL (Negative) 11/14/22 13:04 Acetaminophen < 5.0 ug/mL (10-30) L 11/14/22 11:50 Ur Barbiturates Screen Negative ng/mL (Negative) 11/14/22 13:04 Ur Phencyclidine Scrn Negative ng/mL (Negative) 11/14/22 13:04 Ur Amphetamines Screen Positive ng/mL (Negative) H 11/14/22 13:04 U Benzodiazepines Scrn Negative ng/mL (Negative) 11/14/22 13:04 Urine Cocaine Screen Negative ng/mL (Negative) 11/14/22 13:04 U Marijuana (THC) Screen Positive ng/mL (Negative) H 11/14/22 13:04 Ethyl Alcohol < 10 mg/dL (0-10) 11/14/22 11:50 Hepatitis A IgM Ab Non-reactive (Nonreactive) 11/14/22 11:50 Hep Bs Antigen Non-reactive (Nonreactive) 11/14/22 11:50 Hep Bs Antibody 42.5 (11.5-1000) 11/14/22 11:50 Hep B Core Total Ab Non-reactive (Nonreactive) 11/14/22 11:50 Hepatitis C Antibody Reactive (Nonreactive) H 11/14/22 11:50 HIV 1&2 Ab & HIV 1 Ag Non-reactive (Non-Reactiv) 11/14/22 11:50 HIV 1&2 Antibody Non-reactive (Non-Reactiv) 11/14/22 11:50 Vitals Last Vital Signs Temp 98 F 11/16/22 08:00 Pulse 67 11/16/22 17:02 Resp 15 11/16/22 17:30 BP 120/81 11/16/22 17:30 Pulse Ox 95 11/16/22 17:30 O2 Del Method 11/16/22 17:30 FiO2 24 11/16/22 16:00 Discharge Plan Discharge Patient Disposition: Home Condition: Stable Prescriptions: New carvedilol 3.125 mg tablet 3.125 mg PO BID Qty: 60 0RF Rx Instructions: must administer with a meal/food lisinopril 10 mg tablet 10 mg PO DAILY Qty: 30 0RF spironolactone 25 mg tablet 25 mg PO DAILY Qty: 30 0RF aspirin 81 mg tablet,delayed release (DR/EC) 81 mg PO DAILY Qty: 30 0RF Continued methadone 40 mg Tablet,Soluble 130 mg PO DAILY Discontinued ibuprofen 800 mg Tablet 800 mg PO TID Qty: 45 0RF Discharge Orders: Discharge Order (Routine); Ordered 11/16/22 Ordered By: Janet Luna Other Ambulatory Orders: Basic Metabolic Panel (Routine) Timeframe: 2 Weeks Location: Determined by Patient Ordered By: Janet Luna Referrals: Primary, Care [Other] - 1 week Magdaleno Dickinson MD [Physician] - 1 month (new patient with Takosubo cardiomyopathy) Patient Instructions: Spironolactone (By mouth), Lisinopril (By mouth), Carvedilol (By mouth), Heart Failure (GEN), After Radial Heart Catheterization (GEN), CHF Stoplight, Opioid Safety Activity Restrictions/Additional Instructions: You presented after a seizure. You were initially unresponsive and had to be intubated to protect your airway. During the course of initial evaluation, it was noted that you had evidence of heart abnormalities. Your heart enzymes were very elevated consistent with possible damage to your heart. An echocardiogram revealed that you had low heart function with an ejection fraction at 35%. Once you were awake you did report a maternal grandmother who had a heart attack in her early 50s and from it. Echocardiogram revealed findings suggestive of what is called Takotsubo cardiomyopathy, also known as broken heart syndrome . Your peak troponin, a heart enzyme, however was more than 350. You underwent cardiac catheterization that revealed normal coronary arteries. Findings were consistent with Takotsubo cardiomyopathy as we discussed. I have started you on medications to help your heart have the best chance of recovery. Medications include carvedilol which is a type of blood pressure medication, lisinopril another type of blood pressure medication and spironolactone which is a type of fluid pill. In addition I have listed aspirin daily. Information about medications is attached with this discharge paperwork. The medications are available in generic and are on the low cost medication list at some pharmacies. You did have some rhabdomyolysis with CK into the 4000's. You received IV fluids at a low rate here. CK remained elevated. While you need some fluids to protect your kidneys, drinking excessive amount of fluids may cause heart failure symptoms acutely. Please tries to stick to 2 to 3 L of liquid a day and ensure that you are urinating every few hours. If you develop acute shortness of breath or noticed that you are no longer making urine you need to see your primary care provider or present to the emergency room depending on the severity of your symptoms. Follow-up with cardiology has been ordered. Please follow-up with your primary care provider to have blood pressure checked and renal function checked in 1 to 2 weeks. Creatinine is 0.6 on the day of discharge. You underwent a cardiac catheterization today November 16. Your heart arteries were entered via an access point in your right wrist. You must to be careful with your right wrist for the next 48 hours, with no strenuous activity and no lifting more than 5 pounds with your right wrist (remember your children weigh more than 5 pounds). Please see attached instructions for other information on how to care for your right wrist. If instructions are not followed appropriately you can have potentially life-threatening bleeding from this area. You are encouraged to limit alcohol intake, try to quit any smoking including the use of vaporized nicotine products and remain free of other substances beyond prescription medications at the present time. Discharge Attestations Time Spent in Discharge Care*: greater than 30 min Quality Metrics Clinical Quality Measures [ Acute Myocardial Infaction (NSTEMI) { Clinical Trial Participant: No; Contraindication to aspirin: None; Aspirin prescribed; Contraindication to statin: Medical contraindication; Contraindication to PCI: Intervention not indicated;}] Coding Level of Care Code Critical Care >/= 30 minutes Critical care time (in minutes): 60 The high probability of a clinically significant, sudden or life threatening deterioration, as referenced in this documentation, required my full and direct attention, intervention and personal management. The critical care time shown is in addition to time spent performing any reported separately billable procedures and includes the following: [x] Data and vital sign review and interpretation [x ] Patient assessment, examination and intervention [x] Medication orders and management [x] Patient/Family updates as able [x] Care Coordination and Documentation. Critical care time included time performing conscious sedation for this patient to undergo cardiac catheterization as well as preparation for procedure, discussion with patient and multiple providers including ICU nursing, B[employer] Making Machine Operator nursing, cardiology, anesthesia. In total today I spent more than 2 hours in care of the patient talking with her, educating her, completing discharge process and determining plan of care throughout the day. Only 60 minutes was what I would consider critical care time particularly in a patient with a high tolerance for sedating medications. Other Coding Information Prolonged care (total time indicated above or notated here) Diagnoses Seizure R56.9 Syncope and collapse R55 Respiratory failure J96.90 Elevated troponin R77.8 Cardiomyopathy I42.9 Takotsubo cardiomyopathy I51.81 Rhabdomyolysis M62.82 Methadone use F11.90 Hepatitis C B19.20
--- NOTE | 2022-11-16 18:47 | PC.NURSE ---
pt up ate evening meal good significant other here Dr Luna has stayed in filling station laborer entire time for sedation during procedure and then in icu for post op care ... to assist as pt has had difficult stay. strict instruction given care of wrist
[2022-11-19 22:25] LABS: HEP C RNA Viral Load Quant 5.76 Log IU/mL (NOT DETECTED); HEP C RNA Viral Load Quant 574000 IU/mL (NOT DETECTED)
== END 2022-11-16 19:22 | disposition home or self-care (01) | DRG 208 ==
LOC: ER 13:26 → ICU 15:51
PROVIDERS: Internal Medicine; Internal Medicine Cardiovascular Disease; Admitting Provider Student in an Organized Health Care Education/Training Program; Emergency Provider Family Medicine; Visit Provider Hospitalist
PROC: 4A023N7 Measurement of Cardiac Sampling and Pressure, Left Heart, Percutaneous Approach (ICD-10-PCS; principal; 2022-11-16 14:00)
DX: J96.01 Acute respiratory failure with hypoxia (principal); I50.21 Acute systolic (congestive) heart failure; M62.82 Rhabdomyolysis; I51.81 Takotsubo syndrome; E87.20 Acidosis, unspecified; R55 Syncope and collapse; Z82.49 Family history of ischemic heart disease and other diseases of the circulatory system; B19.20 Unspecified viral hepatitis C without hepatic coma; F12.90 Cannabis use, unspecified, uncomplicated; R56.9 Unspecified convulsions; F10.10 Alcohol abuse, uncomplicated; F15.10 Other stimulant abuse, uncomplicated; F17.210 Nicotine dependence, cigarettes, uncomplicated; Z79.891 Long term (current) use of opiate analgesic
CPT/HCPCS: 31500; 36415; 36592; 36600; 51702; 70450; 70486; 71045; 71275; 72125; 74176; 74177; 80048; 80051; 80053; 80061; 80306; 80307; 81001; 82140; 82330; 82550; 82553; 82607; 82746; 82805; 83036; 83540; 83550; 83605; 83690; 83735; 84100; 84145; 84443; 84484; 84550; 84703; 85025; 85610; 85730; 86403; 86705; 86706; 86709; 86803; 87040; 87070; 87205; 87340; 87449; 87522; 87641; 87806; 93005; 93306; 93325; 93458; 94002; 94003; 94664; 94799; 96365; 96367; 96372; 96375; 96376; 99152; 99153; 99291; C1751; C1769; C1887; C1894; C8924; C9113; J1170; J1644; J1650; J1953; J2060; J2185; J2250; J2270; J2405; J2704; J3010; J3370; J3411; J3490; J7030; J7050; Q9967